=== PATIENT | male | born 1975 | race Caucasian/White ===

== ENCOUNTER 2020-11-22 14:34 | Inpatient (IN) | payer OTHER, SELFPAY ==
[2020-11-22] VITALS (15 sets, daily range): BP systolic 128–179; BP diastolic 95–136; PULSE 83–133; RESP 16–25; TEMP 36.2–36.9; O2SAT 98–99; BMI 33.6; BMI 32.8
--- NOTE | 2020-11-22 15:30 | NURSING ---
NO OLD EKGS
--- NOTE | 2020-11-22 15:39 | EKG12_ITS ---
Test Reason : Blood Pressure : / mmHG Vent. Rate : 121 BPM Atrial Rate : 121 BPM P-R Int : 136 ms QRS Dur : 130 ms QT Int : 358 ms P-R-T Axes : 061 079 -53 degrees QTc Int : 508 ms Sinus tachycardia Non-specific intra-ventricular conduction block Cannot rule out Septal infarct , age undetermined Possible Lateral infarct , age undetermined T wave abnormality, consider inferior ischemia Abnormal ECG Confirmed by ARIEL BEVERLY, JUJU ([id number]), business management manager KITTY FIGUEROA ([id number]) on 11/23/2020 12:48:26 PM Referred By: XAVI/GIUSEPPE Confirmed By:JUJU GEORGE MD
--- NOTE | 2020-11-22 15:39 | RAD_ITS ---
STUDY: X-RAY CHEST REASON FOR EXAM: Male, 45 years old. Chest pain TECHNIQUE: Frontal view COMPARISON: None. FINDINGS: The lungs are clear and expanded. There is no demonstrated pleural abnormality. Cardiomegaly. Normal mediastinum and kevin. Normal visualized pulmonary arteries. Normal visualized aortic arch and descending thoracic aorta. Mild degenerative changes of the thoracic spine. Normal visualized ribs, clavicles, and shoulders. There is no demonstrated abnormality of the visualized soft tissue structures of the upper abdomen. RAD/Chest 1 View (Portable) IMPRESSION: Cardiomegaly. Electronically Signed: Kvng Turcios DO at 16:16 EDT Tel [phone], Service support ,
[2020-11-22 15:49] LABS: Absolute Lymphocyte Count 1.98 X10^3/uL (0.83-4.51); Absolute Neutrophil Count 7.7 X10^3/uL (2.0-7.7); Basophil# 0.09 X10^3/uL; Basophil% 0.8 % (0-1); Eosinophil# 0.03 X10^3/uL; Eosinophils% 0.3 % (0-5); Hematocrit 51.5 % (40-54); Hemoglobin 16.7 g/dL (13.0-16.5); Lymphocyte # 1.98 X10^3/ul (4.0); Lymphocyte % 18.4 % (19-41); Mean Corp Hgb Conc 32.4 g/dL (32-36); Mean Corpuscular Hgb 31.6 pg (27.0-32.0); Mean Corpuscular Volume 97.4 fL (80-94); Mean Platelet Vol. 10.2 fl (6.2-12.0); Monocyte# 0.96 X10^3/uL; Monocyte% 8.9 % (0-10); NRBC Flagged by Analyzer 0 % (0-5); Neutrophil # 7.68 X10^3/uL (2.7-7.7); Neutrophil % 71.2 % (47-70); Platelet Count 314 K/mm3 (150-450); RBC Distribution Width CV 12.9 % (11.6-14.6); RBC Distribution Width SD 46.3 fl (35.1-43.9); Red Blood Count 5.29 M/mm3 (4.6-6.2); White Blood Count 10.8 K/mm3 (4.4-11.0)
[2020-11-22] MEDS: Aspirin 81 MG TAB.CHEW 324 MG PO (15:51)
[2020-11-22] MEDS: 0.9% Normal Saline 1,000 ML 1000 ML IV (15:51)
[2020-11-22 16:11] LABS: Anion Gap 9 (5-15); BUN 16 mg/dL (7-18); BUN/Creat Ratio 10.4 RATIO (10-20); Chloride 102 mmol/L (98-107); Creatinine, Serum 1.54 mg/dL (0.70-1.30); EST Glomerular Filtration Rate 52 mL/min (>60); Est Glom Filt Rate - Afr Amer 62 mL/min (>60); Glucose 104 mg/dL (74-106); Sodium Level 138 mmol/L (136-145); Thyroid Stim Hormone (TSH) 1.81 uIU/mL (0.358-3.74)
[2020-11-22 16:16] LABS: D-Dimer Quantitative (DVT/PE) 1.33 FEU/ug/m (0.27-0.49)
--- NOTE | 2020-11-22 16:17 | CT_ITS ---
STUDY: CTA CHEST REASON FOR EXAM: Male, 45 years old. 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 Post-processing of the angiographic images was performed, with multiplanar reformation and 3D reconstruction. Individualized dose optimization techniques were used for this CT. COMPARISON: None. FINDINGS: Normal enhancement of the main pulmonary artery and right and left pulmonary arteries. Normal enhancement of the bilateral peripheral pulmonary arteries. There is no demonstrated pulmonary embolism. Normal thoracic aorta and visualized great vessels. There is no demonstrated aortic dissection. Normal heart and pericardium. Normal mediastinum. Normal hilar regions. Normal visualized trachea and bronchi. The lungs are well expanded. Normal pulmonary parenchyma. Moderate right pleural effusion. Mild left pleural effusion. Normal chest wall structures. Normal osseous structures. Normal visualized upper abdomen. CT/CTA Chest W/WO Contrast IMPRESSION: No demonstrated pulmonary embolism or arterial dissection. Bilateral pleural effusions, right more than left. Electronically Signed: Kvng Turcios DO at 18:37 EDT Tel [phone], Service support ,
--- NOTE | 2020-11-22 16:19 | ED.VIS.GEN ---
History of Present Illness Chief Complaint: Shortness of Breath Informant: Patient Onset: Weeks Context: Gradual Onset Timing: Continuous Narrative: Is a 45-year-old male denies any past medical history but does admit that he does not go to the doctor presenting with worsening shortness of breath and dyspnea on exertion. He has associated chest tightness. He has had a persistent cough that seems to be worse when he lays down. He thought he might have pneumonia so he went to an urgent care. There he was found to have cardiomegaly and sent to the ER for further evaluation. Patient states over the past few nights he is waking up gasping for breath which is progression of his symptoms. He denies any fever. History of DVT or PE. Does admit decreased activity tolerance. States he has an associated chest tightness but denies any sharp pain. Denies any recent viral syndrome. No other complaints at this time. Past Medical History - Allergies and Home Meds Allergies/Adverse Reactions: Allergies No Known Allergies Allergy (Verified 11/22/20 14:36) Primary Care Physician: [facility] Doctor,Out of [NON-STAFF] - Past Medical History: None Surgical History: noncontributory Lives: Spouse/ Significant Other Smoking Status: Former smoker Review of Systems General: Denies: Chills, Fever, Sweats Eyes: Denies: Visual changes - bilaterally, Diplopia ENT: Denies: Rhinorrhea, Sore throat Cardiovascular: Reports: Chest pain - tightness . Denies: Palpitations Respiratory: Reports: Dyspnea, Cough, Dyspnea on exertion, Orthopnea Gastrointestinal: Denies: Abdominal pain, Nausea, Vomiting, Diarrhea, Melena, Hematochezia Genitourinary: Denies: Dysuria, Hematuria, Frequency Musculoskeletal: Denies: Back pain, Extremity Pain Skin: Denies: Rash, Wounds Neurological: Denies: Headache, Weakness, Numbness Physical Exam Vital Signs/Narrative: Vital Signs Temp Pulse Resp BP Pulse Ox 11/22/20 15:39 99 11/22/20 14:36 97.1 F L 133 H 20 H 178/132 H 98 11/22/20 14:34 97.1 F L 132 H 20 H 178/132 H 98 Inital Vital Signs reviewed: Yes General: Well nourished, Well developed, No Acute Distress Head: Normocephalic, Atraumatic Eyes: Perrl, EOMI ENT: Moist mucous membranes, No rhinorrhea Neck: Supple, Nontender Cardiovascular: Regular rhythm, No murmurs, Tachycardia Respiratory: No distress, Chest nontender, Diminished - bases. Negative for: Decreased Air Movement Abdomen: Soft, Nontender, Nondistended, Normal bowel sounds Back: Nontender, Normal Inspection Extremities: Nontender, No edema Skin: Normal color, No rash Neurological: Alert, Oriented x3, Cranial nerves II-XII grossly intact, Normal Strength, Normal Sensation Psychological: Normal affect, Normal Mood Diagnostic/Tx/Re-eval Chest X-Ray - ED: 1 View, Read by ED Physician, Read by Radiologist, Cardiomegaly Clinical Impression(s) from Imaging Studies Chest X-Ray 11/22/20 15:39 IMPRESSION: Cardiomegaly. Electronically Signed: Kvng Turcios DO at 16:16 EDT Tel [phone], Service support , Laboratory Data 11/22/20 11/22/20 11/22/20 15:40 15:40 15:40 WBC 10.8 RBC 5.29 Hgb 16.7 H Hct 51.5 MCV 97.4 H MCH 31.6 MCHC 32.4 RDW Std Deviation 46.3 H RDW Coeff of Ba 12.9 Plt Count 314 MPV 10.2 Immature Gran % (Auto) 0.400 Neut % (Auto) 71.2 H Lymph % (Auto) 18.4 L [place] % (Auto) 8.9 Eos % (Auto) 0.3 Baso % (Auto) 0.8 Absolute Neuts (auto) 7.7 Absolute Lymphs (auto) 1.98 Nucleated RBC % 0 D-Dimer Quant (PE/DVT) 1.33 H* Sodium 138 Potassium 4.0 Chloride 102 Carbon Dioxide 27.0 Anion Gap 9 BUN 16 Creatinine 1.54 H Estim Creat Clear Calc 59.30 Est GFR (MDRD) Af Amer 62 Est GFR (MDRD) Non-Af 52 L BUN/Creatinine Ratio 10.4 Glucose 104 Calcium 9.0 Troponin I 0.103 H B-Natriuretic Peptide TSH 1.81 11/22/20 15:40 WBC RBC Hgb Hct MCV MCH MCHC RDW Std Deviation RDW Coeff of Ba Plt Count MPV Immature Gran % (Auto) Neut % (Auto) Lymph % (Auto) [place] % (Auto) Eos % (Auto) Baso % (Auto) Absolute Neuts (auto) Absolute Lymphs (auto) Nucleated RBC % D-Dimer Quant (PE/DVT) Sodium Potassium Chloride Carbon Dioxide Anion Gap BUN Creatinine Estim Creat Clear Calc Est GFR (MDRD) Af Amer Est GFR (MDRD) Non-Af BUN/Creatinine Ratio Glucose Calcium Troponin I B-Natriuretic Peptide 2040.7 H TSH - Rhythm Strip Rhythm Strip: Sinus Tach Rate: 121 Ectopy: None - EKG Initial EKG Interpretation: Sinus Tachycardia, LBBB, - - Tachycardia at a rate of 121 interventricular conduction delay consistent with a left bundle branch block Left axis deviation ST depressions in inferior leads as well as V6 Prior: No Prior - Medical Decision Making Patient is evaluated for worsening shortness of breath and dyspnea on exertion. He had an outpatient x-ray which showed cardiomegaly. Reviewed by myself. Patient is hypertensive and tachycardic. He is initially given IV fluids for his tachycardia but this is stopped shortly after and a cardiac work-up is obtained. Patient has an elevated troponin, BNP, and D-dimer. Bedside ultrasound performed by myself does not show any large pericardial effusion but does show cardiomyopathy and what appears to be decreased EF. Case is discussed with cardiology on-call, Dr. Beasley, because of his abnormal EKG. Feels that this is likely left bundle and does not think an emergent cath was required. I am in agreement with this. Patient is given 20 mg of IV labetalol as well as 40 mg of IV Lasix. With the labetalol he has improvement of his cardia and hypertension. Patient is placed on nasal cannula oxygen and does have improvement of his symptoms. Patient be admitted for further evaluation of new onset heart failure. CT reviewed by myself does not show any obvious PE. Final read is still pending. ED Disposition - Plan for ED Patient: Disposition: Acute Care [facility] Diagnosis: New onset of congestive heart failure, Elevated troponin, Elevated serum creatinine, Hypertension Referrals: [facility] Doctor,Out of [NON-STAFF] -
[2020-11-22] MEDS: Labetalol (Prefilled) 20 MG/4 ML IV (16:38)
[2020-11-22] MEDS: Furosemide 40 MG/4 ML Vial IV (17:06)
--- NOTE | 2020-11-22 17:35 | NURSING ---
PCU CHF, NEW ONSET, ELEVATED TROP PAINTSIL
--- NOTE | 2020-11-22 17:45 | PCM.HP.STD ---
<Kimberly Morris - Last Filed: 11/22/20 17:45> Problem List (1) Elevated serum creatinine Status: Acute (2) Elevated troponin Status: Acute (3) New onset of congestive heart failure Status: Acute (4) Hypertension Status: Chronic History of Present Illness Date of Admission: 11/22/20 Chief Complaint: shortness of breath The patient is a 45 year old M who presents today with a 3 to 4-week history of shortness of breath which has gotten increasingly worse over the past 3 to 4 days awakening him from sleep and impacting his ability to perform activities such as pulling the trash cans up the driveway. Patient states that he was being treated for high blood pressure 15 to 20 years ago but quit taking his medications due to potential side effects of liver and kidney damage. Patient states that he has not seen a primary care provider for at least 10+ years because he felt fine. Patient chews tobacco and drinks beer daily. Patient states he is unable to say how many beers a day he drinks because it varies day-to-day. Patient was seen at urgent care prior to arriving in ER where chest x-ray was taken and showed cardiomegaly which is consistent with the chest x-ray obtained upon his arrival. Patient has an elevated D-dimer at 1.33, elevated creatinine 1.54, and elevated BNP 2040.7. Past Medical History Past Medical History (Chronic Problems): Chronic Problems Hypertension (Chronic) Allergies No Known Allergies Allergy (Verified 11/22/20 14:36) Home Medications: Ambulatory Orders Medication Instructions Recorded NK 11/22/20 Surgical History: noncontributory Psychiatric History: No pertinent psych hx Lives: Spouse/ Significant Other Smoking Status: Former smoker Tobacco Use: Chew Alcohol: Heavy Drugs: None - *Family History Maternal History Items: COPD Paternal History Items: Unknown - Patient is not in contact with father Review of Systems Constitutional: Denies: Chills, Fever, Weight Change HEENT: Denies: Head Aches, Sinus Congestion, Sinus Drainage Cardiovascular: Denies: Chest Pain, Palpitations Respiratory: Reports: Shortness of Breath - Awakens him from sleeping, Shortness of breath upon exertion. Denies: Sputum production Gastrointestinal: Denies: Abdominal Pain, Nausea, Vomiting Genitourinary: Denies: Dysuria Musculoskeletal: Denies: Joint Pain, Joint Tenderness Skin: Denies: Rash, Wounds Neurological: Denies: Numbness, Tingling, Focal weakness Psychiatric: Denies: Anxiety, Depression, Homicidal Ideations, Suicidal Ideations Hematologic/ Lymphatic: Denies: Easy Bruising, Easy Bleeding VTE Information - Inpt Only VTE Present on Admission: No VTE Mechan Device Prophylaxis: None VTE Pharm Prophylaxis ordered?: Yes Patient Problems: Active and Suspected Problems New onset of congestive heart failure (Acute) Elevated troponin (Acute) Elevated serum creatinine (Acute) - Physical Exam Vitals/I&O's: Vital Signs Temp Pulse Resp BP Pulse Ox 98 F 89 17 142/119 H 98 11/22/20 17:41 11/22/20 17:41 11/22/20 17:41 11/22/20 17:41 11/22/20 17:41 Oxygen Flow Rate (L/min) 2 Oxygen Delivery Method Room Air Weight: 227 lb 11.8 oz Body Mass Index (BMI) 33.6 Intake and Output for Last 24 Hours 11/20/20 11/21/20 11/22/20 23:59 23:59 23:59 Intake Total 200 / 200 Balance 200 / 200 General: Alert, Oriented x3, Cooperative HEENT: Atraumatic, PERRLA, EOMI, Normocephalic Neck: Supple, No JVD, Negative Carotid Bruits Lungs: Clear to auscultation, Normal air movement, Diminished, Short of Breath Cardiovascular: Regular rate, Regular Rhythm, Normal S1, Normal S2, No murmurs Abdomen: Bowel Sounds Present, Soft, Non Tender Extremities: No edema, Capillary Refill Less than 3 Seconds Skin: No rashes, No breakdown Musculoskeletal: No Tenderness to Palpation of Joints or Extremities Neurological: Cranial nerves II-XII grossly intact Psych/Mental Status: Normal Affect, Appropriate Laboratory Results 11/22/20 15:40: WBC 10.8, RBC 5.29, Hgb 16.7 H, Hct 51.5, MCV 97.4 H, MCH 31.6, MCHC 32.4, RDW Std Deviation 46.3 H, RDW Coeff of Ba 12.9, Plt Count 314, MPV 10.2, Immature Gran % (Auto) 0.400, Neut % (Auto) 71.2 H, Lymph % (Auto) 18.4 L, Swain % (Auto) 8.9, Eos % (Auto) 0.3, Baso % (Auto) 0.8, Absolute Neuts (auto) 7.7, Absolute Lymphs (auto) 1.98, Nucleated RBC % 0 11/22/20 15:40: Sodium 138, Potassium 4.0, Chloride 102, Carbon Dioxide 27.0, Anion Gap 9, BUN 16, Creatinine 1.54 H, Estim Creat Clear Calc 59.30, Est GFR (MDRD) Af Amer 62, Est GFR (MDRD) Non-Af 52 L, BUN/Creatinine Ratio 10.4, Glucose 104, Calcium 9.0, Troponin I 0.103 H, TSH 1.81 11/22/20 15:40: D-Dimer Quant (PE/DVT) 1.33 H* 11/22/20 15:40: B-Natriuretic Peptide 2040.7 H Assessment/Plan All Active Problems New onset of congestive heart failure (Acute) Elevated troponin (Acute) Elevated serum creatinine (Acute) 1. New onset congestive heart failure-initial troponin elevated 0.103. Will trend cardiac enzymes overnight. Patient received Lasix 40 mg IV x1 in ER. We will continue Lasix 40 mg IV twice daily. 2. Hypertension-Per patient this is chronic and untreated. Patient received labetalol 20 mg x 1 in the ER for initial BP 178/132. Patient most recent BP 142/119. We will order as needed hydralazine. 3. Elevated serum creatinine-received IV fluid x1 L in ER. Will obtain CMP in a.m. DVT prophylaxis-SQ heparin This patient was seen by VALERIE David under the supervision of Dr. Vaca. <Bettye Vaca - Last Filed: 11/22/20 23:28> History of Present Illness The patient is a 45 year old M [] Past Medical History Allergies No Known Allergies Allergy (Verified 11/22/20 14:36) - Physical Exam Vitals/I&O's: Vital Signs Temp Pulse Resp BP Pulse Ox 98.4 F 88 18 137/101 H 98 11/22/20 18:19 11/22/20 18:59 11/22/20 19:29 11/22/20 18:19 11/22/20 19:46 Oxygen Flow Rate (L/min) 2 Oxygen Delivery Method Nasal Cannula Weight: 100.698 kg Body Mass Index (BMI) 32.8 Intake and Output for Last 24 Hours 11/20/20 11/21/20 11/22/20 23:59 23:59 23:59 Intake Total 200 / 200 Balance 200 / 200 Laboratory Results 11/22/20 15:40: WBC 10.8, RBC 5.29, Hgb 16.7 H, Hct 51.5, MCV 97.4 H, MCH 31.6, MCHC 32.4, RDW Std Deviation 46.3 H, RDW Coeff of Ba 12.9, Plt Count 314, MPV 10.2, Immature Gran % (Auto) 0.400, Neut % (Auto) 71.2 H, Lymph % (Auto) 18.4 L, Swain % (Auto) 8.9, Eos % (Auto) 0.3, Baso % (Auto) 0.8, Absolute Neuts (auto) 7.7, Absolute Lymphs (auto) 1.98, Nucleated RBC % 0 11/22/20 15:40: Sodium 138, Potassium 4.0, Chloride 102, Carbon Dioxide 27.0, Anion Gap 9, BUN 16, Creatinine 1.54 H, Estim Creat Clear Calc 59.30, Est GFR (MDRD) Af Amer 62, Est GFR (MDRD) Non-Af 52 L, BUN/Creatinine Ratio 10.4, Glucose 104, Calcium 9.0, Troponin I 0.103 H, TSH 1.81 11/22/20 15:40: D-Dimer Quant (PE/DVT) 1.33 H* 11/22/20 15:40: B-Natriuretic Peptide 2040.7 H 11/22/20 19:17: TSH 2.66 11/22/20 19:17: Troponin I 0.093 H 11/22/20 21:31: Troponin I 0.091 H 11/22/20 21:31: Magnesium 2.1 Current Medications Acetaminophen (Acetaminophen 325 Mg Tablet) 650 mg PO Q6H PRN PRN PRN Reason: Pain Score 1-10/Temp > 100.7 F Furosemide (Furosemide 40 Mg/4 Ml Vial) 40 mg IV BID@1000,1800 WILLIAN Heparin Sodium (Porcine) (Heparin Injection (Vial) 5,000 Unit/Ml Vial) 5,000 unit SC Q8 WILLIAN Last Admin: 11/22/20 23:06 Dose: 5,000 unit Documented by: Hydralazine HCl (Hydralazine 20 Mg/Ml Vial) 10 mg IV Q4H PRN PRN PRN Reason: SBP > 160 or DBP > 110 Morphine Sulfate (Morphine 2 Mg/Ml Syringe) 2 mg IV Q3H PRN PRN PRN Reason: Pain Score 6-10 Ondansetron HCl (Ondansetron 4 Mg/2 Ml Vial) 4 mg IV Q8H PRN PRN PRN Reason: NAUSEA/VOMITING Assessment/Plan This patient was seen in conjunction with Kimberly Morris NP. I have independently interviewed and examined the patient and reviewed pertinent historical, laboratory, and other data. Please refer to her note for patient's presentation, findings, and recommendations. 45 y/o male who comes in with a 3 week history of SOB, with exertion and at rest. He denies orthopnea, PND, leg swelling. He denied any weight gain. He was recently seen at urgent care and found to have cardiomegaly. He has h/o hypertension and stopped taking his medications. Vitals were reviewed -elevated BP, improved with Labetalol IV x 1 in ED. Physical Exam: Gen: Comfortable, not pale, not jaundiced, alert oriented x3 CVS:HS I +II, regular, no murmurs RESP: Diminished at lung bases, otherwise clinically clear GI: BS present and normal, nontender, no palpable organs EXT:No edema Labs reviewed: [id number] ASSESSMENT: 1. Acute CHF, unknown cardiomyopathy, unknown EF 2. Indeterminate troponins 3. Elevated Cr, unknown previous 4. Uncontrolled Hypertension Meds reviewed Plan: Admit to PCU Lasix 40mg IV BID CHF protocol - fluid restriction, daily weights 2d-ECHO Trend troponins Repeat labs in am If Cr is stable or improved, can start pt on ACEI/ARB; in the meantime, will give hydralazine prn Inpatient E&M: [id number] Init Hosp L3
--- NOTE | 2020-11-22 18:50 | ECHOCS_ITS ---
Reason For Study: SOB Procedure This was a 2D Doppler, Color Flow transthoracic echocardiogram. The study was technically difficult. Exam performed portable in patient room. Left Ventricle Moderately dilated left ventricle. The estimated ejection fraction is 15 %. Stage 3 diastolic dysfunction. There is severe global hypokinesis of the left ventricle. Right Ventricle Normal RV size. Normal systolic function. Atria The left atrium is moderately enlarged. Normal right atrium. Mitral Valve Normal mitral valve. Tricuspid Valve Normal tricuspid valve. Mild (1+) tricuspid valve insufficiency. Pulmonary artery systolic pressure is 38 mmHg. Aortic Valve Normal aortic valve. Trisinus/trileaflet aortic valve. Pulmonic Valve Normal pulmonic valve. Great Vessels Normal aortic root. The pulmonary artery is normal size. Normal inferior vena cava. Pericardium/Pleural No pericardial effusion. Medication Diluted definity 2ml given slow IV push to enhance endocardial definition. MMode/2D Measurements & Calculations LVIDd: 6.1 cm IVSd: 1.0 cm Ao root diam: 3.4 cm LVIDs: 5.8 cm LVPWd: 1.1 cm RVDd: 4.5 cm FS: 4.6 % LAV(MOD-bp): 95.2 ml LVAd ap4: 53.4 cm2 SV(MOD-sp4): 36.2 ml LAV(MOD-bp) Indexed: 44.5 ml/m2 EDV(MOD-sp4): 239.4 ml LAV(MOD-sp2): 117.2 ml EDV(sp4-el): 249.2 ml LAV(MOD-sp4): 76.2 ml LVAs ap4: 47.4 cm2 ESV(MOD-sp4): 203.2 ml ESV(sp4-el): 212.4 ml EF(MOD-sp4): 15.1 % EF(sp4-el): 14.8 % SV(sp4-el): 36.8 ml LA A4 area: 23.8 cm2 LA dimension(2D): 4.2 cm RA A4 area: 21.7 cm2 Doppler Measurements & Calculations MV E max christ: 94.4 cm/sec Lat Peak E' Christ: 8.7 cm/sec Med Peak E' Christ: 3.4 cm/sec MV A max christ: 44.9 cm/sec E/E' lat: 10.9 E/E' med: 27.5 MV E/A: 2.1 Ao V2 max: 101.7 cm/sec LV V1 max: 79.7 cm/sec PA V2 max: 58.8 cm/sec Ao max P.1 mmHg LV V1 max P.5 mmHg TR max christ: 291.9 cm/sec TR max P.7 mmHg Interpretation Summary The estimated ejection fraction is 15 %. There is severe global hypokinesis of the left ventricle. Moderately dilated left ventricle. Stage 3 diastolic dysfunction. Contrast injection was performed. Ordering Physician: Bettye Vaca Performed By: Rosibel Glover RDCS
[2020-11-22 20:01] LABS: Thyroid Stim Hormone (TSH) 2.66 uIU/mL (0.358-3.74)
--- NOTE | 2020-11-22 21:39 | EKG12_ITS ---
Test Reason : AM EKG Blood Pressure : / mmHG Vent. Rate : 094 BPM Atrial Rate : 094 BPM P-R Int : 146 ms QRS Dur : 136 ms QT Int : 410 ms P-R-T Axes : 059 110 -68 degrees QTc Int : 512 ms Normal sinus rhythm Non-specific intra-ventricular conduction block T wave abnormality, consider inferior ischemia Abnormal ECG When compared with ECG of 22-NOV-2020 21:52, MANUAL COMPARISON REQUIRED, DATA IS UNCONFIRMED Confirmed by ARIEL BEVERLY, JUJU ([id number]), editor & co founder KITTY FIGUEROA ([id number]) on 11/24/2020 9:21:31 AM Referred By: RAHEEM Confirmed By:JUJU GEORGE MD
[2020-11-22 22:42] LABS: Magnesium 2.1 mg/dL (1.6-2.6)
[2020-11-22] MEDS: Heparin Injection (Vial) 5,000 UNIT/ML VIAL 5000 UNIT SC (23:06)
[2020-11-23] VITALS (13 sets, daily range): BP systolic 131–147; BP diastolic 88–108; PULSE 79–107; RESP 14–18; TEMP 36.7–37.2; O2SAT 97–99
[2020-11-23 05:45] LABS: Absolute Lymphocyte Count 1.43 X10^3/uL (0.83-4.51); Absolute Neutrophil Count 9.3 X10^3/uL (2.0-7.7); Basophil# 0.07 X10^3/uL; Basophil% 0.6 % (0-1); Eosinophil# 0.02 X10^3/uL; Eosinophils% 0.2 % (0-5); Hematocrit 51.1 % (40-54); Hemoglobin 16.1 g/dL (13.0-16.5); Lymphocyte # 1.43 X10^3/ul (4.0); Lymphocyte % 11.9 % (19-41); Mean Corp Hgb Conc 31.5 g/dL (32-36); Mean Corpuscular Hgb 31.1 pg (27.0-32.0); Mean Corpuscular Volume 98.8 fL (80-94); Mean Platelet Vol. 10.4 fl (6.2-12.0); Monocyte# 1.13 X10^3/uL; Monocyte% 9.4 % (0-10); NRBC Flagged by Analyzer 0 % (0-5); Neutrophil # 9.28 X10^3/uL (2.7-7.7); Neutrophil % 77.5 % (47-70); Platelet Count 288 K/mm3 (150-450); RBC Distribution Width SD 47.8 fl (35.1-43.9); Red Blood Count 5.17 M/mm3 (4.6-6.2)
--- NOTE | 2020-11-23 05:55 | EKG12_ITS ---
Test Reason : CHF Blood Pressure : / mmHG Vent. Rate : 093 BPM Atrial Rate : 093 BPM P-R Int : 148 ms QRS Dur : 136 ms QT Int : 424 ms P-R-T Axes : 057 104 -89 degrees QTc Int : 527 ms Normal sinus rhythm Non-specific intra-ventricular conduction block T wave abnormality, consider inferior ischemia Abnormal ECG When compared with ECG of 22-NOV-2020 15:27, MANUAL COMPARISON REQUIRED, DATA IS UNCONFIRMED Confirmed by ARIEL BEVERLY, JUJU ([id number]), design editor KITTY FIGUEROA ([id number]) on 11/24/2020 9:21:43 AM Referred By: RAHEEM Confirmed By:JUJU GEORGE MD
[2020-11-23 06:11] LABS: AST(SGOT) 458 U/L (15-37); Alanine Aminotransfer ALT/SGPT 248 U/L (16-61); Albumin, Serum 3.2 g/dL (3.2-5.0); Alkaline Phosphatase 51 U/L (45-117); Anion Gap 8 (5-15); BUN 16 mg/dL (7-18); BUN/Creat Ratio 10.7 RATIO (10-20); Calcium,Total 8.6 mg/dL (8.5-10.1); Chloride 103 mmol/L (98-107); EST Glomerular Filtration Rate 53 mL/min (>60); Est Glom Filt Rate - Afr Amer 64 mL/min (>60); Estimated Creatinine Clearance 60.88 ml/min; Globulin 3.1 g/dL (2.2-4.2); Glucose 94 mg/dL (74-106); Potassium 5.1 mmol/L (3.5-5.1); Protein, Total 6.3 g/dL (6.4-8.2); Sodium Level 138 mmol/L (136-145)
[2020-11-23] MEDS: Heparin Injection (Vial) 5,000 UNIT/ML VIAL 5000 UNIT SC ×3 (06:54→22:38)
--- NOTE | 2020-11-23 09:05 | CCTA.WCONT ---
CCTA w/Cont Coronary Arteries LEFT MAIN CORONARY ARTERY: [] LEFT ANTERIOR DESCENDING CORONARY ARTERY: [] LEFT CIRCUMFLEX CORONARY ARTERY: [] RIGHT CORONARY ARTERY: [] THORACIC AORTA: [] PULMONARY ARTERY: [] LEFT ATRIUM/APPENDAGE: [] MITRAL VALVE: [] AORTIC VALVE: [] LEFT VENTRICLE: [] CORONARY CALCIUM SCORE: []
--- NOTE | 2020-11-23 09:10 | PCM.CONS.C ---
Reason for Consult Date of Consultation: 11/23/20 History of Present Illness: The patient is a 45 year old M [] Past Medical History Allergies/Adverse Reactions: Allergies No Known Allergies Allergy (Verified 11/22/20 14:36) Home Medications: Ambulatory Orders Medication Instructions Recorded NK 11/22/20 Past Medical History (Chronic Problems): Chronic Problems Hypertension (Chronic) Surgical History: noncontributory Psychiatric History: No pertinent psych hx - *Family History Maternal History Items: COPD Paternal History Items: Unknown - Patient is not in contact with father Lives: Spouse/ Significant Other Smoking Status: Former smoker Tobacco Use: Chew Alcohol: Heavy Drugs: None Objective: Vital Signs Temp Pulse Resp BP Pulse Ox 98.2 F 98 18 144/91 H 99 11/23/20 06:00 11/23/20 06:54 11/23/20 06:00 11/23/20 06:00 11/23/20 06:00 Oxygen Flow Rate (L/min) 2 Oxygen Delivery Method Nasal Cannula Weight: 217 lb 13.067 oz Body Mass Index (BMI) 32.8 Intake and Output for Last 24 Hours 11/21/20 11/22/20 11/23/20 23:59 23:59 23:59 Intake Total 680 / 680 200 / 200 Output Total 630 / 630 Balance 50 / 50 200 / 200 General: Alert HEENT: PERRL, EOMI, Sclera Non Icteric Neck: Good ROM, No Lymph Node Enlargement Lungs: Clear to auscultation 11/22/20 15:40: WBC 10.8, RBC 5.29, Hgb 16.7 H, Hct 51.5, MCV 97.4 H, MCH 31.6, MCHC 32.4, Plt Count 314, MPV 10.2, Immature Gran % (Auto) 0.400, Neut % (Auto) 71.2 H, Lymph % (Auto) 18.4 L, [place] % (Auto) 8.9, Eos % (Auto) 0.3, Baso % (Auto) 0.8, Absolute Neuts (auto) 7.7, Nucleated RBC % 0 11/22/20 15:40: Sodium 138, Potassium 4.0, Chloride 102, Carbon Dioxide 27.0, Anion Gap 9, BUN 16, Creatinine 1.54 H, Est GFR (MDRD) Af Amer 62, Est GFR (MDRD) Non-Af 52 L, BUN/Creatinine Ratio 10.4, Glucose 104, Calcium 9.0, Troponin I 0.103 H 11/22/20 15:40: D-Dimer Quant (PE/DVT) 1.33 H* 11/22/20 15:40: B-Natriuretic Peptide 2040.7 H 11/22/20 19:17: Troponin I 0.093 H 11/22/20 21:31: Troponin I 0.091 H 11/22/20 21:31: Magnesium 2.1 11/23/20 05:24: WBC 12.0 H, RBC 5.17, Hgb 16.1, Hct 51.1, MCV 98.8 H, MCH 31.1, MCHC 31.5 L, Plt Count 288, MPV 10.4, Immature Gran % (Auto) 0.400, Neut % (Auto) 77.5 H, Lymph % (Auto) 11.9 L, [place] % (Auto) 9.4, Eos % (Auto) 0.2, Baso % (Auto) 0.6, Absolute Neuts (auto) 9.3 H, Nucleated RBC % 0 11/23/20 05:24: Sodium 138, Potassium 5.1, Chloride 103, Carbon Dioxide 27.0, Anion Gap 8, BUN 16, Creatinine 1.50 H, Est GFR (MDRD) Af Amer 64, Est GFR (MDRD) Non-Af 53 L, BUN/Creatinine Ratio 10.7, Glucose 94, Calcium 8.6, Total Bilirubin 0.80 Rhythm: Normal sinus rhythm EKG: ST-T change , in the inferior leads Assessment/Plan 45-year-old patient, admitted through the ER with symptoms of shortness of breath which has been for the last 3 to 4 weeks. Recently through 4 days ago he noted worsening of his symptoms with progressive shortness of breath And difficulty of even taking the trash out his house. He does not have any symptoms of chest pain. Patient had longstanding history of hypertension currently is not taking any medication and he has not been seen and followed by primary care physician. 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 Assessment and plan;. 1. On review of the record he had a clear evidence of congestive heart failure with cardiomegaly and CHF on the chest x-ray, elevated BNP, also had a very mild elevation of high sensitive troponin I 0.0103, which is likely secondary to his renal insufficiency and to CHF patient has no active symptoms of chest pain this is type II IN 2. Significant elevation of BNP 3. The electrocardiogram showed evidence of, ST T changes in the inferior lead. On physical exam he had a mild basal rales and also he had a +1 lower extremity edema 4. I reviewed his current medication in detail with the nursing staff reduce the dose of Lasix to 40 once a day and also added hydralazine 5. Patient will be evaluated further today by echocardiogram to assess his LV function and also I recommended to follow-up with the cardiology team for continuation of cardiac care plan.
[2020-11-23] MEDS: 0.9% Saline Lock 10 ML Syringe IV (10:00)
[2020-11-23] MEDS: Furosemide 40 MG/4 ML Vial IV (10:00)
[2020-11-23] MEDS: hydrALAZINE 50 MG Tablet PO ×2 (10:06→20:40)
--- NOTE | 2020-11-23 10:57 | CASEMGMT ---
RN CM Assessment Note Introduced role of CM to patient in room. Patient is awake, alert and able to participate in assessment. Demographics verified. Patient works, is independent, and does not have any discharge concerns at this time. The patient chews tobacco and drinks beers daily. Retort Operator updated. Pt is calm and no s/s of withdrawal noted at the time of assessment. -Patient states nursing has been teaching re: medications and importance of compliance. Diagnosis: Acute CHF, HTN PMH: HTN, PCP: none. List for PCP's and specialists given to the patient by nursing. Patient states he will contact offices on dc for follow up. Insurance: MMO Preferred [facility]acy: [facility] Pres[facility] Benefit: none LNOK: , Nikki Finnegan Living Arrangements: Lives independently with his . The patient states he does not have any care needs @ home. Tranportation: drives DME: none HHC: none SNF: none Patient DC Goals: Home DC Plan: Home on discharge. The patient will contact physician offices for new patient appointments and follow up. CM available for discharge planning coordination. Contact CM for any concerns/needs that may arise. Shanna SANCHEZN RN ACM
--- NOTE | 2020-11-23 13:09 | PN_ITS ---
<Mat Spicer - Last Filed: 11/23/20 13:09> Patient Problems: Active and Suspected Problems New onset of congestive heart failure (Acute) Elevated troponin (Acute) Elevated serum creatinine (Acute) Reason for Visit: Progressive shortness of breath. Subjective: Patient is a 45-year-old male comfortably resting in the chair watching TV. Patient currently reports no shortness of breath, chest pain or palpitations. Objective: Clinical Impression(s) from Imaging Studies Chest X-Ray 11/22/20 15:39 IMPRESSION: Cardiomegaly. Electronically Signed: Kvng Turcios DO at 16:16 EDT Tel [phone], Service support , Chest CTA 11/22/20 16:17 IMPRESSION: No demonstrated pulmonary embolism or arterial dissection. Bilateral pleural effusions, right more than left. Electronically Signed: Kvng Turcios DO at 18:37 EDT Tel [phone], Service support , Vitals/I&O's: Vital Signs Temp Pulse Resp BP Pulse Ox 99 F 107 H 15 147/102 H 98 11/23/20 09:47 11/23/20 12:37 11/23/20 09:47 11/23/20 10:06 11/23/20 09:47 Oxygen Flow Rate (L/min) 2 Oxygen Delivery Method Room Air Weight: 217 lb 13.067 oz Body Mass Index (BMI) 32.8 Intake and Output for Last 24 Hours 11/21/20 11/22/20 11/23/20 23:59 23:59 23:59 Intake Total 680 / 680 550 / 550 Output Total 630 / 630 1325 / 1325 Balance 50 / 50 -775 / -775 General: Alert, Oriented x3, Cooperative HEENT: Atraumatic, PERRLA, EOMI, Normocephalic Neck: Supple, No JVD, Negative Carotid Bruits Lungs: Clear to auscultation, Normal air movement Cardiovascular: Regular rate Abdomen: Bowel Sounds Present, Soft, Non Tender Extremities: No edema, Capillary Refill Less than 3 Seconds Skin: No rashes, No breakdown Musculoskeletal: No Tenderness to Palpation of Joints or Extremities Neurological: Cranial nerves II-XII grossly intact Psych/Mental Status: Normal Affect, Appropriate Laboratory Results 11/22/20 15:40: WBC 10.8, RBC 5.29, Hgb 16.7 H, Hct 51.5, MCV 97.4 H, MCH 31.6, MCHC 32.4, RDW Std Deviation 46.3 H, RDW Coeff of Ba 12.9, Plt Count 314, MPV 10.2, Immature Gran % (Auto) 0.400, Neut % (Auto) 71.2 H, Lymph % (Auto) 18.4 L, Summers % (Auto) 8.9, Eos % (Auto) 0.3, Baso % (Auto) 0.8, Absolute Neuts (auto) 7.7, Absolute Lymphs (auto) 1.98, Nucleated RBC % 0 11/22/20 15:40: Sodium 138, Potassium 4.0, Chloride 102, Carbon Dioxide 27.0, Anion Gap 9, BUN 16, Creatinine 1.54 H, Estim Creat Clear Calc 59.30, Est GFR (MDRD) Af Amer 62, Est GFR (MDRD) Non-Af 52 L, BUN/Creatinine Ratio 10.4, Glucose 104, Calcium 9.0, Troponin I 0.103 H, TSH 1.81 11/22/20 15:40: D-Dimer Quant (PE/DVT) 1.33 H* 11/22/20 15:40: B-Natriuretic Peptide 2040.7 H 11/22/20 19:17: TSH 2.66 11/22/20 19:17: Troponin I 0.093 H 11/22/20 21:31: Troponin I 0.091 H 11/22/20 21:31: Magnesium 2.1 11/23/20 05:24: WBC 12.0 H, RBC 5.17, Hgb 16.1, Hct 51.1, MCV 98.8 H, MCH 31.1, MCHC 31.5 L, RDW Std Deviation 47.8 H, RDW Coeff of Ba 13.0, Plt Count 288, MPV 10.4, Immature Gran % (Auto) 0.400, Neut % (Auto) 77.5 H, Lymph % (Auto) 11.9 L, Summers % (Auto) 9.4, Eos % (Auto) 0.2, Baso % (Auto) 0.6, Absolute Neuts (auto) 9.3 H, Absolute Lymphs (auto) 1.43, Nucleated RBC % 0 11/23/20 05:24: Sodium 138, Potassium 5.1, Chloride 103, Carbon Dioxide 27.0, Anion Gap 8, BUN 16, Creatinine 1.50 H, Estim Creat Clear Calc 60.88, Est GFR (MDRD) Af Amer 64, Est GFR (MDRD) Non-Af 53 L, BUN/Creatinine Ratio 10.7, Glucose 94, Calcium 8.6, Total Bilirubin 0.80, AST 458 H, ALT 248 H, Alkaline Phosphatase 51, Total Protein 6.3 L, Albumin 3.2, Globulin 3.1, Albumin/Globulin Ratio 1.0 Current Medications Acetaminophen (Acetaminophen 325 Mg Tablet) 650 mg PO Q6H PRN PRN PRN Reason: Pain Score 1-10/Temp > 100.7 F Furosemide (Furosemide 40 Mg/4 Ml Vial) 40 mg IV DAILY [facility] Last Admin: 11/23/20 10:00 Dose: 40 mg Documented by: Heparin Sodium (Porcine) (Heparin Injection (Vial) 5,000 Unit/Ml Vial) 5,000 unit SC Q8 [facility] Last Admin: 11/23/20 06:54 Dose: 5,000 unit Documented by: Hydralazine HCl (Hydralazine 20 Mg/Ml Vial) 10 mg IV Q4H PRN PRN PRN Reason: SBP > 160 or DBP > 110 Hydralazine HCl (Hydralazine 50 Mg Tablet) 50 mg PO BID [facility] Last Admin: 11/23/20 10:06 Dose: 50 mg Documented by: Morphine Sulfate (Morphine 2 Mg/Ml Syringe) 2 mg IV Q3H PRN PRN PRN Reason: Pain Score 6-10 Ondansetron HCl (Ondansetron 4 Mg/2 Ml Vial) 4 mg IV Q8H PRN PRN PRN Reason: NAUSEA/VOMITING STROKE Vital Signs/Narrative: Vital Signs Temp Pulse Resp BP Pulse Ox 11/23/20 12:37 107 H 11/23/20 10:06 97 147/102 H 11/23/20 09:47 99 F 97 15 147/102 H 98 Medical Necessity - Tobacco Use Smoking Status: Former smoker Tobacco Use: Chew Assessment/Plan All Active Problems New onset of congestive heart failure (Acute) Elevated troponin (Acute) Elevated serum creatinine (Acute) Patient is a 45-year-old male who reported to the ED on 11/21/2020 for progressive shortness of breath. Chest x-ray demonstrated cardiomegaly. EKG demonstrated several abnormalities to include sinus tachycardia, T wave abnormalities, and possible septal and lateral infarcts. Troponins elevated throughout cycle. BNP 2040.7 pg/mL. Currently waiting echocardiogram assessment from cardiovascular medicine. Remain admitted overnight 1) new onset CHF Assessment - BNP 2040.7 - Elevated troponins throughout cycle - Cardiomegaly on chest x-ray - EKG abnormalities - Telemetry sinus tachycardia Plan - Reduce Lasix to 40 mg p.o. daily per cardiology - Add hydralazine per cardiology - Waiting on echocardiogram analysis from cardiovascular medicine 2) Hypertension Assessment - BP 147/102 Plan - Reduce Lasix to 40 mg p.o. daily per cardiology - Add hydralazine per cardiology 3) Elevated creatinine Assessment - 1.50 as of 11/23/2020 - Trending down from yesterday Plan - Continue to monitor - Continue to hold CAROLINA I/ARB DVT Prophylaxis - SC Heparin Patient seen by Mat Spicer PA-C, under the supervision of Dr. Muro <Shar Muro - Last Filed: 11/23/20 15:57> Subjective: Feeling better. Breathing well. Patient states that he is very motivated to change his life, diet cut out alcohol and follow-up to physicians moving forward. Vitals/I&O's: Vital Signs Temp Pulse Resp BP Pulse Ox 37.0 C 93 14 131/89 H 97 11/23/20 14:13 11/23/20 14:13 11/23/20 14:13 11/23/20 14:13 11/23/20 14:13 Oxygen Flow Rate (L/min) 2 Oxygen Delivery Method Room Air Weight: 98.8 kg Body Mass Index (BMI) 32.8 Intake and Output for Last 24 Hours 11/21/20 11/22/20 11/23/20 23:59 23:59 23:59 Intake Total 680 / 680 550 / 550 Output Total 630 / 630 1325 / 1325 Balance 50 / 50 -775 / -775 General: Alert, Cooperative HEENT: Atraumatic, Normocephalic Neck: No Nodes, Thyroid Normal Size and Texture Lungs: Normal air movement, No wheeze, - - bibasilar crackles Cardiovascular: Regular rate, Regular Rhythm, Normal S1, Normal S2 Abdomen: Bowel Sounds Present, Soft, Non Tender, Non-Distended Extremities: No edema, No Calf Tenderness Skin: No rashes, No breakdown Laboratory Results 11/22/20 15:40: Sodium 138, Potassium 4.0, Chloride 102, Carbon Dioxide 27.0, Anion Gap 9, BUN 16, Creatinine 1.54 H, Estim Creat Clear Calc 59.30, Est GFR (MDRD) Af Amer 62, Est GFR (MDRD) Non-Af 52 L, BUN/Creatinine Ratio 10.4, Glucose 104, Calcium 9.0, Troponin I 0.103 H, TSH 1.81 11/22/20 15:40: D-Dimer Quant (PE/DVT) 1.33 H* 11/22/20 15:40: B-Natriuretic Peptide 2040.7 H 11/22/20 19:17: TSH 2.66 11/22/20 19:17: Troponin I 0.093 H 11/22/20 21:31: Troponin I 0.091 H 11/22/20 21:31: Magnesium 2.1 11/23/20 05:24: WBC 12.0 H, RBC 5.17, Hgb 16.1, Hct 51.1, MCV 98.8 H, MCH 31.1, MCHC 31.5 L, RDW Std Deviation 47.8 H, RDW Coeff of Ba 13.0, Plt Count 288, MPV 10.4, Immature Gran % (Auto) 0.400, Neut % (Auto) 77.5 H, Lymph % (Auto) 11.9 L, [place]mers % (Auto) 9.4, Eos % (Auto) 0.2, Baso % (Auto) 0.6, Absolute Neuts (auto) 9.3 H, Absolute Lymphs (auto) 1.43, Nucleated RBC % 0 11/23/20 05:24: Sodium 138, Potassium 5.1, Chloride 103, Carbon Dioxide 27.0, Anion Gap 8, BUN 16, Creatinine 1.50 H, Estim Creat Clear Calc 60.88, Est GFR (MDRD) Af Amer 64, Est GFR (MDRD) Non-Af 53 L, BUN/Creatinine Ratio 10.7, Glucose 94, Calcium 8.6, Total Bilirubin 0.80, AST 458 H, ALT 248 H, Alkaline Phosphatase 51, Total Protein 6.3 L, Albumin 3.2, Globulin 3.1, Albumin/Globulin Ratio 1.0 Current Medications Acetaminophen (Acetaminophen 325 Mg Tablet) 650 mg PO Q6H PRN PRN PRN Reason: Pain Score 1-10/Temp > 100.7 F Furosemide (Furosemide 40 Mg/4 Ml Vial) 40 mg IV DAILY [facility] Last Admin: 11/23/20 10:00 Dose: 40 mg Documented by: Heparin Sodium (Porcine) (Heparin Injection (Vial) 5,000 Unit/Ml Vial) 5,000 unit SC Q8 [facility] Last Admin: 11/23/20 14:19 Dose: 5,000 unit Documented by: Hydralazine HCl (Hydralazine 20 Mg/Ml Vial) 10 mg IV Q4H PRN PRN PRN Reason: SBP > 160 or DBP > 110 Hydralazine HCl (Hydralazine 50 Mg Tablet) 50 mg PO BID [facility] Last Admin: 11/23/20 10:06 Dose: 50 mg Documented by: Morphine Sulfate (Morphine 2 Mg/Ml Syringe) 2 mg IV Q3H PRN PRN PRN Reason: Pain Score 6-10 Ondansetron HCl (Ondansetron 4 Mg/2 Ml Vial) 4 mg IV Q8H PRN PRN PRN Reason: NAUSEA/VOMITING STROKE Vital Signs/Narrative: Vital Signs Temp Pulse Resp BP Pulse Ox 11/23/20 14:13 37.0 C 93 14 131/89 H 97 11/23/20 12:37 107 H Assessment/Plan Patient seen and examined independently. Data reviewed. I agree with the above note by the physician certified ophthalmic assistant. 1. Acute heart failure with a reduced ejection fraction EF 15% Overall improving Plan: * Continue with IV diuresis with furosemide * Started on hydralazine. Holding off on CAROLINA inhibitor/angiotensin receptor blockers given the chronic kidney disease at this time. * Cardiology following 2. Elevated troponin Likely due to demand with the patient heart failure Has been trending down 3. CKD 3A Monitor closely while patient is on furosemide. No need for renal placement therapy at this time. 4. VTE prophylaxis with subcu heparin. Inpatient E&M: 9[address] [facility] L2
[2020-11-23 18:05] LABS: Anion Gap 8 (5-15); BUN 24 mg/dL (7-18); BUN/Creat Ratio 15.6 RATIO (10-20); Calcium,Total 8.4 mg/dL (8.5-10.1); Chloride 103 mmol/L (98-107); Creatinine, Serum 1.54 mg/dL (0.70-1.30); EST Glomerular Filtration Rate 52 mL/min (>60); Est Glom Filt Rate - Afr Amer 62 mL/min (>60); Glucose 97 mg/dL (74-106); Magnesium 2.1 mg/dL (1.6-2.6); Potassium 4.1 mmol/L (3.5-5.1); Sodium Level 138 mmol/L (136-145)
[2020-11-23] MEDS: Carvedilol 3.125 MG TABLET PO (20:47)
[2020-11-24] VITALS (18 sets, daily range): BP systolic 105–139; BP diastolic 73–107; PULSE 71–97; RESP 14–16; TEMP 36.6–37.1; O2SAT 95–99
[2020-11-24] MEDS: Heparin Injection (Vial) 5,000 UNIT/ML VIAL 5000 UNIT SC ×2 (05:51→22:30)
[2020-11-24 06:00] LABS: ALB/GLOB Ratio 0.9 RATIO (0.9-2.4); AST(SGOT) 317 U/L (15-37); Alanine Aminotransfer ALT/SGPT 263 U/L (16-61); Albumin, Serum 2.7 g/dL (3.2-5.0); Alkaline Phosphatase 46 U/L (45-117); Anion Gap 8 (5-15); BUN 21 mg/dL (7-18); BUN/Creat Ratio 17.1 RATIO (10-20); Calcium,Total 8.5 mg/dL (8.5-10.1); Chloride 103 mmol/L (98-107); Creatinine, Serum 1.23 mg/dL (0.70-1.30); EST Glomerular Filtration Rate 67 mL/min (>60); Est Glom Filt Rate - Afr Amer 81 mL/min (>60); Estimated Creatinine Clearance 74.24 ml/min; Globulin 3.1 g/dL (2.2-4.2); Glucose 87 mg/dL (74-106); Potassium 3.8 mmol/L (3.5-5.1); Protein, Total 5.8 g/dL (6.4-8.2); Sodium Level 140 mmol/L (136-145)
[2020-11-24] MEDS: hydrALAZINE 50 MG Tablet PO ×2 (08:25→22:29)
[2020-11-24] MEDS: Carvedilol 3.125 MG TABLET PO ×2 (08:26→09:55)
--- NOTE | 2020-11-24 08:43 | EKG12_ITS ---
Test Reason : Blood Pressure : / mmHG Vent. Rate : 098 BPM Atrial Rate : 098 BPM P-R Int : 148 ms QRS Dur : 138 ms QT Int : 402 ms P-R-T Axes : 063 101 -76 degrees QTc Int : 513 ms Normal sinus rhythm Non-specific intra-ventricular conduction block T wave abnormality, consider inferior ischemia Abnormal ECG When compared with ECG of 23-NOV-2020 04:14, MANUAL COMPARISON REQUIRED, DATA IS UNCONFIRMED Confirmed by ARIEL BEVERLY, JUJU ([id number]), manager editorial KITTY FIGUEROA ([id number]) on 11/27/2020 10:58:30 AM Referred By: CANDI Confirmed By:JUJU GEORGE MD
--- NOTE | 2020-11-24 09:15 | CASEMGMT ---
Per Dr. Muro, pt may need a Lifevest at discharge. Call to [place] [facility] and to inquire about whether Lifevest has been initiated by office and per Marcie, she will inquire and call this RN LUCIA back. Usually, ALUMINUM SIDING APPLICATOR in cardiology office works on this but she is not in the office today per Marcie. Kayden, PCU charge, updated, voices understanding. [facility] HE CM
[2020-11-24] MEDS: Lisinopril 5 MG Tablet PO (09:55)
--- NOTE | 2020-11-24 09:55 | CASEMGMT ---
According to the O website, the following are in-network tertiary facilities: [facility], [place], [facility], [place], [facility], [facility], [facility], [facility], [facility], and . [place]
[2020-11-24] MEDS: Furosemide 40 MG/4 ML Vial IV (10:01)
[2020-11-24] MEDS: 0.9% Normal Saline 1,000 ML 15 ML IV (10:37)
--- NOTE | 2020-11-24 11:49 | CASEMGMT ---
Lifevest rep here to speak with pt. Rep is aware that pt is getting a cath and this RN CM will notify him if pt would happen to be transferred s/p cath. Shanique CUTLER CM
--- NOTE | 2020-11-24 13:12 | CL.D_ITS ---
Patient Name: MICHAEL HENRY Study Date: 11/24/2020 Performing: Niels Beasley MD Ht: 68.89 inches 175 cm : 1975 Wt: 216.05 lbs 98 kg Age: 45 Gender: male BSA: 2.13 PROCEDURE(S) PERFORMED EF53-YEA/COR/LV CLINICAL PROFILE AND INDICATIONS Indications: Cardiomyopathy Heart Failure: NYHA Class: 3, Newly Diagnosed: Yes, Heart Failure Type: Systolic Stress/Imaging Stress/Image Study Performed: No CAD Presentations: Symptom unlikely to be ischemic. CONCLUSIONS Normal coronary arteries Cardiomyopathy: Dilated RECOMMENDATIONS Medical therapy We will maximize medical therapy with CAR[place]INA inhibitor's, beta-blockers, diuretics. Amiodarone short-te rm. Patient would also go home on a LifeVest and be followed up in the office. DESCRIPTION OF PROCEDURE The patient arrived to the procedure lab. The risks and benefits of the procedure as well as a full d escription of our services here and current unavailability of surgical backup were fully explained to the patient and/or their significant other prior to the catheterization. The Timeout was completed, verifying the correct patient and procedure. The patient's procedural site was prepped and draped in the usual fashion. Local anesthetic was given subcutaneously to right radial region with Lidocaine 2% . Using a modified Seldinger technique, arterial access was obtained via the right radial artery, a 6 Fr sheath was inserted. Right Coronary Artery selective angiography was then performed in multiple v iews using a 5 Fr. 4.0 [place] catheter. Left Coronary Artery selective angiography was performed in mu ltiple views using a 5 Fr. 4.0 [place] catheter. Left Ventriculography was performed in PANDA projection using a 5 Fr. Pigtail catheter. LV to AO pullback pressures were then recorded.The arterial sheath was pulled and a TR Band was applied for hemostasis CORONARY ANGIOGRAPHY DOMINANCE: Right Dominant LEFT HEART ASSESSMENT Left Ventricular Ejection Fraction: by LV Gram 15 % Global Hypokinesis - Severe Depressed Left Ventricular systolic function LEFT MAIN: Angiographically normal LEFT ANTERIOR DESCENDING ARTERY: Angiographically normal CIRCUMFLEX ARTERY: Angiographically normal RAMUS: Angiographically normal RIGHT CORONARY ARTERY: Angiographically normal COMPLICATIONS No Complications PROCEDURE MEDICATIONS Versed 1 mg IV Fentanyl 50 mcg IV Versed 1 mg IV Oxygen: 2 L/min via nasal cannula Baby Aspirin (81mg) 1 Tabs PO @ 11/24/2020 12:44:24 Heparin given IA 11/24/2020 12:54:20 Verapamil 2.5mg, Ntg 100mcgs, 2000 units of Heparin given IA 11/24/2020 12:54:20 SUMMARY OF HEMODYNAMIC DATA Time AIR REST ECG 12:27:19 AO 100/75 (87) SA 12:55:44 LV 100/13, 26 13:01:00 LV 103/10, 23 13:01:07 LV 94/9, 16 13:02:43 LV 94/11, 19 13:02:49 LVp 94/10, 18 13:02:56 AOp 98/69 (83) 13:03:01 Signed By Niels Beasley MD On 11/24/2020 13:11:45 Niels Beasley MD
--- NOTE | 2020-11-24 13:13 | PN.CARD_ITS ---
Subjectve: Patient seen and evaluated. Appears to be doing well. Objective: Vital Signs Temp Pulse Resp BP Pulse Ox 98 F 96 14 138/104 H 96 11/24/20 08:21 11/24/20 08:25 11/24/20 08:21 11/24/20 08:25 11/24/20 08:21 Oxygen Flow Rate (L/min) 2 Oxygen Delivery Method Room Air Weight: 214 lb 15.211 oz Body Mass Index (BMI) 32.8 Intake and Output for Last 24 Hours 11/22/20 11/23/20 11/24/20 23:59 23:59 23:59 Intake Total 680 / 680 1000 / 1200 643 / 643 Output Total 630 / 630 2125 / 2125 2600 / 2600 Balance 50 / 50 -1125 / -925 -1956 / General: Awake, Alert, Oriented x 3 HEENT: PERRL, EOMI, Sclera Non Icteric Neck: Supple, Good ROM, No Lymph Node Enlargement Lungs: Clear to auscultation Cardiovascular: Regular Rhythm, Normal S1, Normal S2, No Murmurs, No Rubs, No Gallops Vascular: No Carotid Bruits, Normal Femoral Pulses, Normal Radial Pulses, Normal Dorsalis Pedal Pulse, Normal Posterior Tibial Pulses Abdomen: Bowel Sounds Present, Soft, Non Tender, No HSM, No Organomegaly Extremities: No Cyanosis, No Clubbing, No edema Musculoskeletal: No Erythema Skin: No Rashes Neurological: No Focal Motor or Sensory Deficit Psych/Mental Status: Appropriate 11/23/20 17:35: Sodium 138, Potassium 4.1, Chloride 103, Carbon Dioxide 27.0, Anion Gap 8, BUN 24 H, Creatinine 1.54 H, Est GFR (MDRD) Af Amer 62, Est GFR (MDRD) Non-Af 52 L, BUN/Creatinine Ratio 15.6, Glucose 97, Calcium 8.4 L, Magnesium 2.1 11/24/20 05:00: Sodium 140, Potassium 3.8, Chloride 103, Carbon Dioxide 29.0, Anion Gap 8, BUN 21 H, Creatinine 1.23, Est GFR (MDRD) Af Amer 81, Est GFR (MDRD) Non-Af 67, BUN/Creatinine Ratio 17.1, Glucose 87, Calcium 8.5, Total Bilirubin 0.80 11/24/20 05:00: B-Natriuretic Peptide 1649.0 H Rhythm: EKG: ECHO: Stress Test: Cardiac Cath: PCI: CT Surgery: Holter monitor: EPS: PPM: CXR: Chest CT Scan: Medical Necessity - Tobacco Use Smoking Status: Former smoker Tobacco Use: Chew Assessment/Plan 1. Severe nonischemic cardiomyopathy * Patient has severe nonischemic cardiomyopathy with an estimated ejection fra ction of 15%. Patient underwent cardiac catheterization today which demonstrated essentially normal coronary arteries. The left ventricular ejection fraction was confirmed at approximately 15% by cardiac catheterization as well as by echocardiographic evaluation. * In view of the fact that the patient has only a history of hypertension it is likely that the above is secondary to the hypertensive heart disease. * Would recommend continuing the beta-nelli with carvedilol 6.25 mg twice a day and titrating upwards as appropriate * Would add [place] inhibitor lisinopril and titrate upwards as an appropriate and will eventually switch to Entresto * Would continue Lasix 40 mg daily on discharge * Would also consider the patient for an implantable defibrillator if ejection fraction is not improved in 90 days. * In the meantime with his nonsustained ventricular tachyarrhythmia would recommend the placement of a LifeVest. The above has been discussed with the patient who is understandable and agrees to proceed. * Appropriate education on the above has been undertaken. * 2. Congestive heart failure-with reduced ejection fraction * Patient is noted to have congestive heart failure [place] Heart Association class III new onset ACC stage C. * Would institute and continue guideline directed medical therapy including beta-nelli, CAR[place] inhibitors or Entresto, diuretics, spironolactone at a later date. * 3. Nonsustained ventricular tachycardia * Patient exhibited nonsustained ventricular tachycardia which was relatively asymptomatic. * Will load patient with intravenous amiodarone and also oral amiodarone short- term. The above can be adjusted as appropriate. After 90 days we will consider repeat echocardiogram to assess whether an implantable defibrillator or additional medical therapy will be considered. * The patient has a left bundle branch block pattern and if his ejection fraction does not improve may be a candidate for a REPRODUCTION ORDER PROCESSOR-D device * 4. Hypertension * Patient has uncontrolled hypertension. * Would maximize medical therapy with CAROLINA inhibitor and beta-nelli as well as hydralazine at the present time. * Will closely follow renal function. * * Thank you for allowing me to participate in the care of your patient. Please don't hesitate to call if any issues arise.
[2020-11-24] MEDS: Amiodarone 200 MG Tablet PO ×2 (14:48→22:29)
--- NOTE | 2020-11-24 14:48 | PN_ITS ---
<Mat Spicer - Last Filed: 11/24/20 14:48> Patient Problems: Active and Suspected Problems (Last Updated 11/24/20 @ 13:34 by Daniela Peace) New onset of congestive heart failure (Acute) Elevated troponin (Acute) Elevated serum creatinine (Acute) Subjective: Patient is a 45 y/o male who is comfortably resting in bed, alert and oriented x3. Patient is having no symptoms at this time, however, is having a difficult time coming to terms with his new medical conditions as he is observed occasionally weeping with the nursing staff. Objective: Clinical Impression(s) from Imaging Studies Chest X-Ray 11/22/20 15:39 IMPRESSION: Cardiomegaly. Electronically Signed: Kvng Turcios DO at 16:16 EDT Tel [phone], Service support , Chest CTA 11/22/20 16:17 IMPRESSION: No demonstrated pulmonary embolism or arterial dissection. Bilateral pleural effusions, right more than left. Electronically Signed: Kvng Turcios DO at 18:37 EDT Tel [phone], Service support , Vitals/I&O's: Vital Signs Temp Pulse Resp BP Pulse Ox 98 F 71 14 128/91 H 97 11/24/20 13:40 11/24/20 14:43 11/24/20 14:43 11/24/20 14:43 11/24/20 14:43 Oxygen Flow Rate (L/min) 2 Oxygen Delivery Method Room Air Weight: 214 lb 15.211 oz Body Mass Index (BMI) 32.8 Intake and Output for Last 24 Hours 11/22/20 11/23/20 11/24/20 23:59 23:59 23:59 Intake Total 680 / 680 1000 / 1200 643 / 643 Output Total 630 / 630 2125 / 2125 2600 / 2600 Balance 50 / 50 -1125 / -925 -1956 / General: Alert, Oriented x3, Cooperative HEENT: Atraumatic Neck: Supple Lungs: Clear to auscultation, Normal air movement Cardiovascular: Regular Rhythm, No murmurs, Tachycardic, - Abdomen: Bowel Sounds Present, Soft, Non Tender Extremities: No edema, Capillary Refill Less than 3 Seconds Skin: No rashes, No breakdown Musculoskeletal: No Tenderness to Palpation of Joints or Extremities Neurological: Cranial nerves II-XII grossly intact Psych/Mental Status: Normal Affect, Appropriate Laboratory Results 11/23/20 17:35: Sodium 138, Potassium 4.1, Chloride 103, Carbon Dioxide 27.0, Anion Gap 8, BUN 24 H, Creatinine 1.54 H, Estim Creat Clear Calc 59.30, Est GFR (MDRD) Af Amer 62, Est GFR (MDRD) Non-Af 52 L, BUN/Creatinine Ratio 15.6, Glucose 97, Calcium 8.4 L, Magnesium 2.1 11/24/20 05:00: Sodium 140, Potassium 3.8, Chloride 103, Carbon Dioxide 29.0, Anion Gap 8, BUN 21 H, Creatinine 1.23, Estim Creat Clear Calc 74.24, Est GFR (MDRD) Af Amer 81, Est GFR (MDRD) Non-Af 67, BUN/Creatinine Ratio 17.1, Glucose 87, Calcium 8.5, Total Bilirubin 0.80, AST 317 H, ALT 263 H, Alkaline Phosphatase 46, Total Protein 5.8 L, Albumin 2.7 L, Globulin 3.1, Albumin/Globulin Ratio 0.9 11/24/20 05:00: B-Natriuretic Peptide 1649.0 H Current Medications Acetaminophen (Acetaminophen 325 Mg Tablet) 650 mg PO Q6H PRN PRN PRN Reason: Pain Score 1-10/Temp > 100.7 F Amiodarone HCl (Amiodarone 200 Mg Tablet) 200 mg PO TID [facility] Carvedilol (Carvedilol 6.25 Mg Tablet) 6.25 mg PO BID [facility] Furosemide (Furosemide 40 Mg/4 Ml Vial) 40 mg IV DAILY [facility] Last Admin: 11/24/20 10:01 Dose: 40 mg Documented by: Heparin Sodium (Porcine) (Heparin Injection (Vial) 5,000 Unit/Ml Vial) 5,000 unit SC Q8 [facility] Last Admin: 11/24/20 13:34 Dose: Not Given Documented by: Hydralazine HCl (Hydralazine 20 Mg/Ml Vial) 10 mg IV Q4H PRN PRN PRN Reason: SBP > 160 or DBP > 110 Hydralazine HCl (Hydralazine 50 Mg Tablet) 50 mg PO BID [facility] Last Admin: 11/24/20 08:25 Dose: 50 mg Documented by: Sodium Chloride () 1,000 mls @ 0 mls/hr IV .Q0M [facility] Last Admin: 11/24/20 10:37 Dose: 15 mls/hr Documented by: Lisinopril (Lisinopril 5 Mg Tablet) 5 mg PO DAILY [facility] Last Admin: 11/24/20 09:55 Dose: 5 mg Documented by: Ondansetron HCl (Ondansetron 4 Mg/2 Ml Vial) 4 mg IV Q8H PRN PRN PRN Reason: NAUSEA/VOMITING STROKE Vital Signs/Narrative: Vital Signs Temp Pulse Resp BP Pulse Ox 11/24/20 14:43 71 14 128/91 H 97 11/24/20 14:26 74 14 132/95 H 98 11/24/20 13:40 98 F 74 14 127/95 H 99 11/24/20 13:24 97.8 F 76 14 128/97 H 99 Medical Necessity - Tobacco Use Smoking Status: Former smoker Tobacco Use: Chew Assessment/Plan All Active Problems (Last Updated 11/24/20 @ 13:34 by Daniela Peace) Acute systolic (congestive) heart failure (Acute) Cardiomyopathy, dilated, nonischemic (Acute) New onset of congestive heart failure (Acute) Elevated troponin (Acute) Elevated serum creatinine (Acute) Patient is a 45-year-old male who reported to the ED on 11/21/2020 for progressive shortness of breath. Cardiology now following. Echocardiogram yesterday revealed an estimated ejection fraction of 15%, moderately dilated left ventricle, stage III diastolic dysfunction. Cardiac catheterization revealed normal coronary coronary arteries as well as dilated cardiomyopathy. Overnight telemetry revealed asymptomatic nonsustained V. tach. 1) new onset CHF Assessment - Patient classifies for NYHA class III HF cardiology - Patient classifies for new onset ACC stage C per cardiology - Ejection fraction 15% Plan - Patient initiated on labetalol, furosemide, carvedilol, lisinopril 2) Non ischemic cardiomyopathy Assessment - Left ventricular ejection fraction of 15% confirmed by cardiac catheterization as well as echocardiographic evaluation Plan - Carvedilol 6.25 mg twice daily - Continue Lasix 40 mg daily - Continue lisinopril - Candidate for implantable defibrillator if ejection fraction does not improve in 90 days 3) Non sustained V-Tach Assessment - Several nonsustained episodes observed on telemetry overnight Plan - Bolus of amiodarone and oral amiodarone ordered - Attempting to get LifeVest approved through insurance - Possible candidate for 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 Muro <Shar Muro - Last Filed: 11/24/20 15:20> Vitals/I&O's: Vital Signs Temp Pulse Resp BP Pulse Ox 36.6 C 71 14 128/91 H 97 11/24/20 13:40 11/24/20 14:43 11/24/20 14:43 11/24/20 14:43 11/24/20 14:43 Oxygen Flow Rate (L/min) 2 Oxygen Delivery Method Room Air Weight: 97.5 kg Body Mass Index (BMI) 32.8 Intake and Output for Last 24 Hours 11/22/20 11/23/20 11/24/20 23:59 23:59 23:59 Intake Total 680 / 680 1000 / 1200 643 / 643 Output Total 630 / 630 2125 / 2125 2600 / 2600 Balance 50 / 50 -1125 / -925 -1956 / -1956 General: Alert, Cooperative HEENT: Atraumatic Neck: Supple Lungs: Clear to auscultation, Normal air movement Cardiovascular: Regular Rhythm, No murmurs, Tachycardic Abdomen: Bowel Sounds Present, Soft, Non Tender Extremities: No edema, Capillary Refill Less than 3 Seconds Skin: No rashes, No breakdown Psych/Mental Status: Normal Affect, Appropriate Laboratory Results 11/23/20 17:35: Sodium 138, Potassium 4.1, Chloride 103, Carbon Dioxide 27.0, Anion Gap 8, BUN 24 H, Creatinine 1.54 H, Estim Creat Clear Calc 59.30, Est GFR (MDRD) Af Amer 62, Est GFR (MDRD) Non-Af 52 L, BUN/Creatinine Ratio 15.6, Glucose 97, Calcium 8.4 L, Magnesium 2.1 11/24/20 05:00: Sodium 140, Potassium 3.8, Chloride 103, Carbon Dioxide 29.0, Anion Gap 8, BUN 21 H, Creatinine 1.23, Estim Creat Clear Calc 74.24, Est GFR (MDRD) Af Amer 81, Est GFR (MDRD) Non-Af 67, BUN/Creatinine Ratio 17.1, Glucose 87, Calcium 8.5, Total Bilirubin 0.80, AST 317 H, ALT 263 H, Alkaline Phosphatase 46, Total Protein 5.8 L, Albumin 2.7 L, Globulin 3.1, Albumin/Globulin Ratio 0.9 11/24/20 05:00: B-Natriuretic Peptide 1649.0 H Current Medications Acetaminophen (Acetaminophen 325 Mg Tablet) 650 mg PO Q6H PRN PRN PRN Reason: Pain Score 1-10/Temp > 100.7 F Amiodarone HCl (Amiodarone 200 Mg Tablet) 200 mg PO TID [facility] Last Admin: 11/24/20 14:48 Dose: 200 mg Documented by: Carvedilol (Carvedilol 6.25 Mg Tablet) 6.25 mg PO BID [facility] Furosemide (Furosemide 40 Mg/4 Ml Vial) 40 mg IV DAILY [facility] Last Admin: 11/24/20 10:01 Dose: 40 mg Documented by: Heparin Sodium (Porcine) (Heparin Injection (Vial) 5,000 Unit/Ml Vial) 5,000 unit SC Q8 [facility] Last Admin: 11/24/20 13:34 Dose: Not Given Documented by: Hydralazine HCl (Hydralazine 20 Mg/Ml Vial) 10 mg IV Q4H PRN PRN PRN Reason: SBP > 160 or DBP > 110 Hydralazine HCl (Hydralazine 50 Mg Tablet) 50 mg PO BID [facility] Last Admin: 11/24/20 08:25 Dose: 50 mg Documented by: Sodium Chloride () 1,000 mls @ 0 mls/hr IV .Q0M [facility] Last Admin: 11/24/20 10:37 Dose: 15 mls/hr Documented by: Lisinopril (Lisinopril 5 Mg Tablet) 5 mg PO DAILY [facility] Last Admin: 11/24/20 09:55 Dose: 5 mg Documented by: Ondansetron HCl (Ondansetron 4 Mg/2 Ml Vial) 4 mg IV Q8H PRN PRN PRN Reason: NAUSEA/VOMITING STROKE Vital Signs/Narrative: Vital Signs Temp Pulse Resp BP Pulse Ox 11/24/20 14:43 71 14 128/91 H 97 11/24/20 14:26 74 14 132/95 H 98 11/24/20 13:40 36.6 C 74 14 127/95 H 99 11/24/20 13:24 36.6 C 76 14 128/97 H 99 Assessment/Plan Patient seen and examined independently. Data reviewed. I agree with the above note by the physician internal medicine physician assistant. 1. Acute heart failure with a reduced ejection fraction EF 15% Overall improving Normal coronaries Plan: * Continue with IV diuresis with furosemide * Started on hydralazine. Holding off on [place] inhibitor/angiotensin receptor blockers given the chronic kidney disease at this time. * Cardiology following * amiodarone * life vest 2. Elevated troponin 2/2 to demand with the patient heart failure Has been trending down 3. CKD 3A Monitor closely while patient is on furosemide. No need for renal placement therapy at this time. 4. VTE prophylaxis with subcu heparin. Inpatient E&M: 29770 Subs Hosp L2
--- NOTE | 2020-11-24 15:00 | CASEMGMT ---
Late entry-Call to Lifevest rep to notify of clean cath and pt possible discharge tomorrow 11/25, voices understanding and states nurse will come with vest once approved through insurance. Kayden, PCU charge, aware and not to discharge pt until Lifevest in place, voices understanding. SStamna RN CM
[2020-11-24] MEDS: Carvedilol 6.25 MG Tablet PO (22:29)
[2020-11-25 02:55] VITALS: PULSE 73
[2020-11-25 04:08] VITALS: BP 113/78; PULSE 71; RESP 16; TEMP 36.7; O2SAT 99
[2020-11-25] MEDS: Amiodarone 200 MG Tablet PO (06:13)
[2020-11-25] MEDS: Heparin Injection (Vial) 5,000 UNIT/ML VIAL 5000 UNIT SC (06:13)
[2020-11-25 07:14] VITALS: PULSE 71
[2020-11-25 07:53] LABS: Anion Gap 8 (5-15); BUN 17 mg/dL (7-18); BUN/Creat Ratio 15.9 RATIO (10-20); Calcium,Total 8.1 mg/dL (8.5-10.1); Chloride 104 mmol/L (98-107); Creatinine, Serum 1.07 mg/dL (0.70-1.30); EST Glomerular Filtration Rate 78 mL/min (>60); Est Glom Filt Rate - Afr Amer 95 mL/min (>60); Estimated Creatinine Clearance 85.35 ml/min; Glucose 95 mg/dL (74-106); Potassium 3.6 mmol/L (3.5-5.1); Sodium Level 138 mmol/L (136-145)
[2020-11-25 08:30] VITALS: BP 128/89; PULSE 82; RESP 18; TEMP 36.2; O2SAT 96; O2SAT 98
[2020-11-25] MEDS: Carvedilol 6.25 MG Tablet PO (08:36)
[2020-11-25] MEDS: Lisinopril 5 MG Tablet PO (08:36)
[2020-11-25 08:37] VITALS: PULSE 82
[2020-11-25] MEDS: hydrALAZINE 50 MG Tablet PO (08:37)
--- NOTE | 2020-11-25 09:56 | PCM.DC ---
- Discharge Diagnoses Current Active Problems: Current Active and Chronic Problems (Last Updated 11/24/20 @ 16:02 by Daniela Peace) New onset of congestive heart failure (Acute) Elevated troponin (Acute) Elevated serum creatinine (Acute) You will use the following diet at home:: Cardiac Your food should be the consistency of: Regular Your liquids should be the consistency of: Regular/Thin Discharge Activity: Return to Normal Activity Return to work on:: 12/11/20 - Per cardiology Allergies/Adverse Reactions: Allergies No Known Allergies Allergy (Verified 11/22/20 14:36) Medications to take at Discharge Amiodarone HCl [Cordarone] 200 mg PO BID #30 tab 11/25/20 Carvedilol [Coreg (Beta Eb)] 6.25 mg PO BID #60 tab 11/25/20 Furosemide [Lasix] 40 mg PO DAILY #30 tablet 11/25/20 Hydralazine HCl 50 mg PO BID #60 tablet 11/25/20 Lisinopril 5 mg PO DAILY #30 tablet 11/25/20 Potassium Chloride Oral Tablet [K-Dur] 10 meq PO DAILY #30 tab 11/25/20 Primary Care Physician: [facility] Doctor,Out of [NON-STAFF] - Test Results: Test results from this visit will be discussed in further detail at your follow-up appointment, if applicable. Please Follow Up With: Niels Beasley MD When: Within the next week Proposed Discharge Date: 11/25/20 - Pending visit from cardiology and LifeVest issued to patient
[2020-11-25] MEDS: Furosemide 40 MG/4 ML Vial IV (11:08)
--- NOTE | 2020-11-25 12:23 | PCM.DC.SUM ---
<Mat Spicer - Last Filed: 11/25/20 12:23> Discharge Date and Diagnosis - Problem List Patient Problems: Active and Suspected Problems (Last Updated 11/24/20 @ 16:02 by Daniela Peace) New onset of congestive heart failure (Acute) Elevated troponin (Acute) Elevated serum creatinine (Acute) Date of Admission: 11/22/20 - Primary Discharge Diagnosis Acute Problems: Active Problems (Last Updated 11/24/20 @ 16:02 by Daniela Peace) New onset of congestive heart failure (Acute) Non ischemic cardiomyopathy (Acute) Nonsustained V. tach (Acute) Elevated troponin (Acute) Elevated serum creatinine (Acute) Hypertension (Chronic) - Secondary Discharge Diagnosis Chronic Problems: Chronic Problems (Last Updated 11/24/20 @ 16:02 by Daniela Peace) Essential (primary) hypertension (Chronic) Hospital Course and Treatment Imaging Results: Clinical Impression(s) from Imaging Studies Chest X-Ray 11/22/20 15:39 IMPRESSION: Cardiomegaly. Electronically Signed: Kvng Turcios DO at 16:16 EDT Tel [phone], Service support , Chest CTA 11/22/20 16:17 IMPRESSION: No demonstrated pulmonary embolism or arterial dissection. Bilateral pleural effusions, right more than left. Electronically Signed: Kvng Turcios DO at 18:37 EDT Tel [phone], Service support , Procedures: 2-D Echocardiogram, Cardiac catheterization Summary of Care Provided: Patient is a 45-year-old male who reported to the ED on 11/21/2020 for progressive shortness of breath. Cardiology brought on board to help manage the patient's new onset CHF, nonischemic cardiomyopathy, and nonsustained V. tach. Bolus and scheduled amiodarone was able to manage V. tach overnight, as no episodes were observed since. LifeVest also issued to patient upon discharge. Mr. Finnegan is now considered stable for outpatient management. Patient is to follow-up with Dr. Beasley of the [facility] within the next 2 weeks. Patient advised by the mid level business analyst that he is not to drive for the next 90 days, after which he will be reevaluated. 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 1) new onset CHF Assessment - Patient classifies for NYHA class III HF cardiology - Patient classifies for new onset ACC stage C per cardiology - Ejection fraction 15% Plan - Initiated on lisinopril 5 mg daily at discharge - Initiated on carvedilol 6.2 mg twice daily at discharge - Initiated on Lasix 40 mg daily at discharge - Follow-up with the [facility] within the next 2 weeks 2) Non ischemic cardiomyopathy Assessment - Left ventricular ejection fraction of 15% confirmed by cardiac catheterization as well as echocardiographic evaluation Plan - Initiated on lisinopril 5 mg daily at discharge - Initiated on carvedilol 6.2 mg twice daily at discharge - Initiated on Lasix 40 mg daily at discharge - Follow-up with the [facility] within the next 2 weeks - Candidate for implantable defibrillator if ejection fraction does not improve in 90 days 3) Non sustained V-Tach Assessment - No episodes of V. tach observed on telemetry overnight Plan - Initiated on amiodarone hydrochloride 200 mg twice daily at discharge - LifeVest issued to patient at discharge - Patient not to drive for 90 days, after which he will be reevaluated - Excused from work - Patient advised that if LifeVest defibrillate's him, he is to report to the emergency department immediately - Possible candidate for FISHING MANAGER?D device 4) Hypertension Assessment - BP 147/102 Plan - Initiated on Lasix 40 mg daily at discharge - Initiated on Lisinopril 5 mg daily at discharge 5) Elevated creatinine Assessment -1.07 as of 11/25/2020 - Continuing to trend down from yesterday Plan - Resolved DVT Prophylaxis - SC Heparin Patient seen by Mat Spicer PA-C, under the supervision of Dr. Muro Patient Problems: Active and Suspected Problems (Last Updated 11/24/20 @ 16:02 by Daniela Peace) New onset of congestive heart failure (Acute) Elevated troponin (Acute) Elevated serum creatinine (Acute) Subjective: Patient is a 45-year-old male who is comfortably resting in the chair, alert and oriented x3. Patient was briefed on all 6 new medications that he is being discharged with, as well as instructions for the LifeVest. Patient understands and is in agreement with all. Denies chest pain, shortness of breath, cough, palpitations. Objective: Clinical Impression(s) from Imaging Studies Chest X-Ray 11/22/20 15:39 IMPRESSION: Cardiomegaly. Electronically Signed: Kvng Turcios DO at 16:16 EDT Tel [phone], Service support , Chest CTA 11/22/20 16:17 IMPRESSION: No demonstrated pulmonary embolism or arterial dissection. Bilateral pleural effusions, right more than left. Electronically Signed: Kvng Turcios DO at 18:37 EDT Tel [phone], Service support , - Physical Exam Vitals/I&O's: Vital Signs Temp Pulse Resp BP Pulse Ox 97.1 F L 82 18 128/89 H 98 11/25/20 08:30 11/25/20 08:37 11/25/20 08:30 11/25/20 08:30 11/25/20 08:30 Oxygen Flow Rate (L/min) 2 Oxygen Delivery Method Room Air Weight: 211 lb 10.3 oz Body Mass Index (BMI) 32.8 Intake and Output for Last 24 Hours 11/23/20 11/24/20 11/25/20 23:59 23:59 23:59 Intake Total 1000 / 1200 1187.75 / 1387.75 515 / 515 Output Total 2125 / 2125 3100 / 3500 400 / 400 Balance -1125 / -925 -1912.25 / -2112.25 115 / 115 General: Alert, Oriented x3, Cooperative HEENT: Atraumatic, PERRLA, EOMI, Normocephalic Neck: Supple, No JVD, Negative Carotid Bruits Lungs: Clear to auscultation, Normal air movement Cardiovascular: Regular rate, No murmurs Abdomen: Bowel Sounds Present, Soft, Non Tender Extremities: No edema, Capillary Refill Less than 3 Seconds, Edema - 1+ pitting edema, - Skin: No rashes, No breakdown Musculoskeletal: No Tenderness to Palpation of Joints or Extremities Neurological: Cranial nerves II-XII grossly intact Psych/Mental Status: Normal Affect, Appropriate Laboratory Results 11/25/20 06:50: Sodium 138, Potassium 3.6, Chloride 104, Carbon Dioxide 26.0, Anion Gap 8, BUN 17, Creatinine 1.07, Estim Creat Clear Calc 85.35, Est GFR (MDRD) Af Amer 95, Est GFR (MDRD) Non-Af 78, BUN/Creatinine Ratio 15.9, Glucose 95, Calcium 8.1 L Current Medications Acetaminophen (Acetaminophen 325 Mg Tablet) 650 mg PO Q6H PRN PRN PRN Reason: Pain Score 1-10/Temp > 100.7 F Amiodarone HCl (Amiodarone 200 Mg Tablet) 200 mg PO TID [facility] Last Admin: 11/25/20 06:13 Dose: 200 mg Documented by: Carvedilol (Carvedilol 6.25 Mg Tablet) 6.25 mg PO BID [facility] Last Admin: 11/25/20 08:36 Dose: 6.25 mg Documented by: Furosemide (Furosemide 40 Mg/4 Ml Vial) 40 mg IV DAILY [facility] Last Admin: 11/25/20 11:08 Dose: 40 mg Documented by: Heparin Sodium (Porcine) (Heparin Injection (Vial) 5,000 Unit/Ml Vial) 5,000 unit SC Q8 [facility] Last Admin: 11/25/20 06:13 Dose: 5,000 unit Documented by: Hydralazine HCl (Hydralazine 20 Mg/Ml Vial) 10 mg IV Q4H PRN PRN PRN Reason: SBP > 160 or DBP > 110 Hydralazine HCl (Hydralazine 50 Mg Tablet) 50 mg PO BID [facility] Last Admin: 11/25/20 08:37 Dose: 50 mg Documented by: Sodium Chloride () 1,000 mls @ 0 mls/hr IV .Q0M [facility] Last Infusion: 11/25/20 02:42 Dose: Infused Documented by: Lisinopril (Lisinopril 5 Mg Tablet) 5 mg PO DAILY [facility] Last Admin: 11/25/20 08:36 Dose: 5 mg Documented by: Ondansetron HCl (Ondansetron 4 Mg/2 Ml Vial) 4 mg IV Q8H PRN PRN PRN Reason: NAUSEA/VOMITING Discharge Activity: Return to Normal Activity Return to work on:: 02/26/21 - Per cardiology Home Medications: Medications to take at Discharge Amiodarone HCl [Cordarone] 200 mg PO BID #30 tab 11/25/20 Carvedilol [Coreg (Beta Eb)] 6.25 mg PO BID #60 tab 11/25/20 Furosemide [Lasix] 40 mg PO DAILY #30 tablet 11/25/20 Hydralazine HCl 50 mg PO BID #60 tablet 11/25/20 Lisinopril 5 mg PO DAILY #30 tablet 11/25/20 Potassium Chloride Oral Tablet [K-Dur] 10 meq PO DAILY #30 tab 11/25/20 Following Prescriptions Were Given to Patient: Amiodarone HCl [Cordarone] 200 mg PO BID #30 tab Transmission Status: Received by [facility] [id number] Carvedilol [Coreg (Beta Eb)] 6.25 mg PO BID #60 tab Transmission Status: Received by [facility] [id number] Hydralazine HCl 50 mg PO BID #60 tablet Transmission Status: Received by [facility] [id number] Potassium Chloride Oral Tablet [K-Dur] 10 meq PO DAILY #30 tab Transmission Status: Received by [facility] [id number] Furosemide [Lasix] 40 mg PO DAILY #30 tablet Transmission Status: Received by [facility] [id number] Lisinopril 5 mg PO DAILY #30 tablet Transmission Status: Received by [facility] [id number] Primary Care Physician: [facility] Doctor,Out of [NON-STAFF] - Please Follow Up With: Niels Beasley MD When: Within the next week Disposition: Home Minutes spent on discharge:: 35 Patient Condition:: Stable Medical Necessity - Tobacco Use Smoking Status: Former smoker Tobacco Use: Chew Meaningful Use Info Meaningful Use Diagnoses (Choose all that apply): CHF - CHF CAROLINA/ARB ordered at discharge?: Yes Documented LVEF (%): 15 <Shar Muro - Last Filed: 11/25/20 13:10> Discharge Date and Diagnosis Date of Discharge: 11/25/20 - Primary Discharge Diagnosis Acute Problems: Active Problems (Last Updated 11/24/20 @ 16:02 by Daniela Peace) New onset of congestive heart failure (Acute) Elevated troponin (Acute) Elevated serum creatinine (Acute) - Secondary Discharge Diagnosis Chronic Problems: Chronic Problems (Last Updated 11/24/20 @ 16:02 by Daniela Peace) Essential (primary) hypertension (Chronic) Hospital Course and Treatment Procedures: 2-D Echocardiogram, Cardiac catheterization Summary of Care Provided: Patient seen and examined independently. Data reviewed. I agree with the above note by the physician plumber assistant. The patient is a 45 year old M presents with shortness of breath. Essential patient was found to have nonischemic cardiomyopathy with an EF of 15%. He underwent left heart catheterization that showed normal coronaries. Patient's course was complicated by some nonsustained VT and some ventricular ectopy. Likely related with the patient's profound cardiomyopathy. In addition to medications, patient will have a LifeVest upon discharge. Patient be following up with cardiology in regards to further management of his CHF and cardiomyopathy. Patient has shown that he is very motivated to follow instructions and follow-up. Previously, patient had not been established any physician over the past 10 years but has expressed great desire to take ownership and to help his condition is much as possible. Upon discharge, patient is recommended to limit his activity to walking very short distances and to limit any kind heavy lifting no more than 20 pounds at this time. Advised him that that will eventually be let up over time. Patient eventually get involved in cardiac rehab but they will be at the discretion of the mid level business analyst. Patient is medically stable for discharge. Discussed with cardiology today. [] - Physical Exam Vitals/I&O's: Vital Signs Temp Pulse Resp BP Pulse Ox 36.2 C L 82 18 128/89 H 98 11/25/20 08:30 11/25/20 08:37 11/25/20 08:30 11/25/20 08:30 11/25/20 08:30 Oxygen Flow Rate (L/min) 2 Oxygen Delivery Method Room Air Weight: 96 kg Body Mass Index (BMI) 32.8 Intake and Output for Last 24 Hours 11/23/20 11/24/20 11/25/20 23:59 23:59 23:59 Intake Total 1000 / 1200 1187.75 / 1387.75 515 / 515 Output Total 2124 / 2124 3100 / 3500 400 / 400 Balance -1125 / -925 -1911.25 / -2111.25 115 / 115 General: Alert, Cooperative HEENT: Atraumatic, Normocephalic Lungs: Clear to auscultation, Normal air movement, No rhonchi, No wheeze Cardiovascular: Regular rate, No murmurs Abdomen: Bowel Sounds Present, Soft, Non Tender Extremities: No edema, Capillary Refill Less than 3 Seconds, Edema Skin: No rashes, No breakdown Laboratory Results 11/25/20 06:50: Sodium 138, Potassium 3.6, Chloride 104, Carbon Dioxide 26.0, Anion Gap 8, BUN 17, Creatinine 1.07, Estim Creat Clear Calc 85.35, Est GFR (MDRD) Af Amer 95, Est GFR (MDRD) Non-Af 78, BUN/Creatinine Ratio 15.9, Glucose 95, Calcium 8.1 L Current Medications Acetaminophen (Acetaminophen 325 Mg Tablet) 650 mg PO Q6H PRN PRN PRN Reason: Pain Score 1-10/Temp > 100.7 F Amiodarone HCl (Amiodarone 200 Mg Tablet) 200 mg PO TID [facility] Last Admin: 11/25/20 06:13 Dose: 200 mg Documented by: Carvedilol (Carvedilol 6.25 Mg Tablet) 6.25 mg PO BID [facility] Last Admin: 11/25/20 08:36 Dose: 6.25 mg Documented by: Furosemide (Furosemide 40 Mg/4 Ml Vial) 40 mg IV DAILY [facility] Last Admin: 11/25/20 11:08 Dose: 40 mg Documented by: Heparin Sodium (Porcine) (Heparin Injection (Vial) 5,000 Unit/Ml Vial) 5,000 unit SC Q8 [facility] Last Admin: 11/25/20 06:13 Dose: 5,000 unit Documented by: Hydralazine HCl (Hydralazine 20 Mg/Ml Vial) 10 mg IV Q4H PRN PRN PRN Reason: SBP > 160 or DBP > 110 Hydralazine HCl (Hydralazine 50 Mg Tablet) 50 mg PO BID [facility] Last Admin: 11/25/20 08:37 Dose: 50 mg Documented by: Sodium Chloride () 1,000 mls @ 0 mls/hr IV .Q0M [facility] Last Infusion: 11/25/20 02:42 Dose: Infused Documented by: Lisinopril (Lisinopril 5 Mg Tablet) 5 mg PO DAILY [facility] Last Admin: 11/25/20 08:36 Dose: 5 mg Documented by: Ondansetron HCl (Ondansetron 4 Mg/2 Ml Vial) 4 mg IV Q8H PRN PRN PRN Reason: NAUSEA/VOMITING Discharge Diet: No Restrictions Discharge Activity: Return to Normal Activity Disposition: Home Minutes spent on discharge:: 35 Patient Condition:: Stable Medical Necessity - Tobacco Use Smoking Status: Former smoker Tobacco Use: Chew Meaningful Use Info Meaningful Use Diagnoses (Choose all that apply): CHF - CHF CAROLINA/ARB ordered at discharge?: Yes Documented LVEF (%): 15 Inpatient E&M: 93462 Disch Hosp
--- NOTE | 2020-11-25 12:54 | PCM.PN.CARD ---
Objective: Vital Signs Temp Pulse Resp BP Pulse Ox 97.1 F L 82 18 128/89 H 98 11/25/20 08:30 11/25/20 08:37 11/25/20 08:30 11/25/20 08:30 11/25/20 08:30 Oxygen Flow Rate (L/min) 2 Oxygen Delivery Method Room Air Weight: 211 lb 10.3 oz Body Mass Index (BMI) 32.8 Intake and Output for Last 24 Hours 11/23/20 11/24/20 11/25/20 23:59 23:59 23:59 Intake Total 1000 / 1200 1187.75 / 1387.75 515 / 515 Output Total 5 / 212 3100 / 3500 400 / 400 Balance -1125 / -925 -1912.25 / -2111.25 115 / 115 Abdomen: Bowel Sounds Present, Soft, Non Tender, No HSM, No Organomegaly Extremities: No Cyanosis, No Clubbing, No edema Neurological: No Focal Motor or Sensory Deficit Psych/Mental Status: Appropriate 11/25/20 06:50: Sodium 138, Potassium 3.6, Chloride 104, Carbon Dioxide 26.0, Anion Gap 8, BUN 17, Creatinine 1.07, Est GFR (MDRD) Af Amer 95, Est GFR (MDRD) Non-Af 78, BUN/Creatinine Ratio 15.9, Glucose 95, Calcium 8.1 L Rhythm: Cardiac rhythm is normal sinus EKG: ECHO: Severe LV dilatation with severe LV systolic dysfunction with ejection fraction in the range of 15 Medical Necessity - Tobacco Use Smoking Status: Former smoker Tobacco Use: Chew Assessment/Plan 45-year-old patient with severe dilated cardiomyopathy Patient primary edger technician is plan seen and evaluated today at bedside, at bedside Doing well clinically stable no further episode of nonsustained ventricular tachycardia Assessment and plan;. 1. Patient has severe dilated cardiomyopathy, with EF around 15% 2. All his current medication has been discussed 3. Patient has LifeVest. Patient advised not to drive due to the risk of cardiac arrhythmia with V. tach and will follow with a edger technician with the plan of repeating echocardiogram and discussing further plan.
== END 2020-11-25 13:41 | disposition home or self-care (01) | DRG 286 ==
LOC: ED 16:15 → PCU 17:43
PROVIDERS: Internal Medicine Interventional Cardiology; Admitting Provider Internal Medicine; Emergency Provider Emergency Medicine
DX: I13.0 Hypertensive heart and chronic kidney disease with heart failure and stage 1 through stage 4 chronic kidney disease, or unspecified chronic kidney disease (principal); I50.21 Acute systolic (congestive) heart failure; I47.2 Ventricular tachycardia; Z86.718 Personal history of other venous thrombosis and embolism; F17.220 Nicotine dependence, chewing tobacco, uncomplicated; N18.31 Chronic kidney disease, stage 3a; I42.0 Dilated cardiomyopathy
CPT/HCPCS: 36415; 71045; 71275; 80048; 80053; 83735; 83880; 84443; 84484; 85025; 85379; 93005; 93306; 93458; 97802; 99152; 99153; 99251; 99285; 99406; J7030; Q9957; Q9967; A4216; C1769; C1894; C8929; G0463; J1940

== ENCOUNTER → 2020-12-15 10:42 | Outpatient (CLI) | payer OTHER, SELFPAY ==
[2020-12-15 10:04] VITALS: BMI 29.7
[2020-12-15 11:43] LABS: Anion Gap 4 (5-15); BUN 17 mg/dL (7-18); BUN/Creat Ratio 14.8 RATIO (10-20); Calcium,Total 9.1 mg/dL (8.5-10.1); Chloride 100 mmol/L (98-107); Creatinine, Serum 1.15 mg/dL (0.70-1.30); EST Glomerular Filtration Rate 72 mL/min (>60); Est Glom Filt Rate - Afr Amer 87 mL/min (>60); Glucose 107 mg/dL (74-106); Potassium 3.8 mmol/L (3.5-5.1); Sodium Level 133 mmol/L (136-145)
== END ==
PROVIDERS: PCP Family Medicine; Referring Provider Internal Medicine Cardiovascular Disease; Visit Provider Internal Medicine Cardiovascular Disease
DX: I50.9 Heart failure, unspecified (principal)
CPT/HCPCS: 36415; 80048

== ENCOUNTER → 2021-01-29 10:55 | Outpatient (CLI) | payer OTHER, SELFPAY ==
[2020-12-15 10:04] VITALS: BMI 29.7
[2021-01-29 12:05] LABS: Thyroid Stim Hormone (TSH) 1.53 uIU/mL (0.358-3.74)
== END ==
PROVIDERS: PCP Family Medicine; Referring Provider Internal Medicine Cardiovascular Disease; Visit Provider Internal Medicine Cardiovascular Disease
DX: I42.0 Dilated cardiomyopathy (principal); I11.0 Hypertensive heart disease with heart failure; I50.42 Chronic combined systolic (congestive) and diastolic (congestive) heart failure; I47.2 Ventricular tachycardia; I25.2 Old myocardial infarction; Z95.810 Presence of automatic (implantable) cardiac defibrillator; Z79.899 Other long term (current) drug therapy
CPT/HCPCS: 36415; 84443

== ENCOUNTER → 2021-02-26 12:47 | Outpatient (CLI) | payer OTHER, SELFPAY ==
[2020-12-15 10:04] VITALS: BMI 29.7
--- NOTE | 2021-02-26 12:55 | ECHOD_ITS ---
Reason For Study: CHF Procedure This was a 2D Doppler, Color Flow transthoracic echocardiogram. Exam performed in department. Left Ventricle Moderately dilated left ventricle. The estimated ejection fraction is 30 %. Stage 1 diastolic dysfunction. There is moderate to severe global hypokinesis of the left ventricle. Right Ventricle Normal RV size. Normal systolic function. Atria The left atrium is mildly enlarged. Normal right atrium. Mitral Valve Normal mitral valve. Tricuspid Valve Normal tricuspid valve. Mild (1+) tricuspid valve insufficiency. Pulmonary artery systolic pressure is 40 mmHg. Aortic Valve Normal aortic valve. Trisinus/trileaflet aortic valve. Pulmonic Valve Normal pulmonic valve. Great Vessels Normal aortic root. The pulmonary artery is normal size. Normal inferior vena cava. Pericardium/Pleural No pericardial effusion. MMode/2D Measurements & Calculations LVIDd: 6.2 cm IVSd: 0.90 cm Ao root diam: 3.5 cm LVIDs: 4.8 cm LVPWd: 0.86 cm RVDd: 4.2 cm FS: 22.3 % LAV(MOD-bp): 88.2 ml LA A4 area: 23.1 cm2 LA dimension(2D): 4.2 cm LAV(MOD-bp) Indexed: 42.6 ml/m2 LAV(MOD-sp2): 104.8 ml LAV(MOD-sp4): 72.8 ml RA A4 area: 18.3 cm2 Time Measurements MV dec time: 0.22 sec Doppler Measurements & Calculations MV E max christ: 65.1 cm/sec Lat Peak E' Christ: 3.1 cm/sec Med Peak E' Christ: 4.5 cm/sec MV A max christ: 90.7 cm/sec E/E' lat: 21.0 E/E' med: 14.6 MV E/A: 0.72 Ao V2 max: 173.6 cm/sec LV V1 max: 90.7 cm/sec PA V2 max: 104.5 cm/sec Ao max P.1 mmHg LV V1 max P.4 mmHg PI end-d christ: 135.6 cm/sec TR max christ: 296.4 cm/sec TR max P.1 mmHg ECHO/Echo Complete Interpretation Summary Moderately dilated left ventricle. The estimated ejection fraction is 30 %. There is moderate to severe global hypokinesis of the left ventricle. Stage 1 diastolic dysfunction. Pulmonary artery systolic pressure is 40 mmHg. The global longitudinal strain is severely abnormal. The global longitudinal st rain = -11.7% (abnormal). Compared to previous study, the left ventricular systolic function has improved.. Ordering Physician: Niels Beasley Referring Physician: BRIDGETTE MATOS Performed By: Violeta Meng RDCS, RVT
[2021-02-26 15:07] LABS: Anion Gap 7 (5-15); BUN 18 mg/dL (7-18); BUN/Creat Ratio 15.1 RATIO (10-20); Calcium,Total 9.5 mg/dL (8.5-10.1); Chloride 99 mmol/L (98-107); Creatinine, Serum 1.19 mg/dL (0.70-1.30); EST Glomerular Filtration Rate 69 mL/min (>60); Est Glom Filt Rate - Afr Amer 84 mL/min (>60); Glucose 92 mg/dL (74-106); Potassium 4.3 mmol/L (3.5-5.1); Sodium Level 136 mmol/L (136-145)
== END ==
PROVIDERS: PCP Family Medicine; Visit Provider Internal Medicine Cardiovascular Disease
DX: I42.0 Dilated cardiomyopathy (principal); I11.0 Hypertensive heart disease with heart failure; I50.42 Chronic combined systolic (congestive) and diastolic (congestive) heart failure; I47.2 Ventricular tachycardia; I25.2 Old myocardial infarction; Z95.810 Presence of automatic (implantable) cardiac defibrillator
CPT/HCPCS: 36415; 80048; 93306

== ENCOUNTER → 2021-06-11 09:29 | Outpatient (CLI) | payer OTHER, SELFPAY ==
[2021-03-14 08:43] VITALS: BMI 29.7
--- NOTE | 2021-06-11 09:35 | ECHOD_ITS ---
Reason For Study: VENTRICULAR TACHYCARDIA Procedure This was a 2D Doppler, Color Flow transthoracic echocardiogram. Exam performed in department. Left Ventricle Normal LV size. Left ventricular systolic function is normal. The estimated ejection fraction is 55 %. Stage 1 diastolic dysfunction. No regional wall motion abnormalities noted. Right Ventricle Normal RV size. Normal systolic function. Atria Normal left atrium. Normal right atrium. Mitral Valve Normal mitral valve. Tricuspid Valve Normal tricuspid valve. Mild (1+) tricuspid valve insufficiency. Pulmonary artery systolic pressure is 30 mmHg. Pulmonic Valve Normal pulmonic valve. Great Vessels Normal aortic root. The pulmonary artery is normal size. Normal inferior vena cava. Pericardium/Pleural No pericardial effusion. MMode/2D Measurements & Calculations LVIDd: 5.9 cm IVSd: 0.92 cm Ao root diam: 3.4 cm LVIDs: 4.5 cm LVPWd: 0.99 cm RVDd: 3.8 cm FS: 23.7 % LAV(MOD-bp): 72.1 ml LA A4 area: 20.8 cm2 LA dimension(2D): 4.0 cm LAV(MOD-bp) Indexed: 35.0 ml/m2 LAV(MOD-sp2): 73.9 ml LAV(MOD-sp4): 68.9 ml RA A4 area: 18.0 cm2 Time Measurements MV dec time: 0.34 sec Doppler Measurements & Calculations MV E max christ: 65.3 cm/sec Lat Peak E' Christ: 10.0 cm/sec Med Peak E' Christ: 7.0 cm/sec MV A max christ: 86.9 cm/sec E/E' lat: 6.5 E/E' med: 9.4 MV E/A: 0.75 Ao V2 max: 148.6 cm/sec LV V1 max: 131.6 cm/sec PA V2 max: 127.2 cm/sec Ao max P.8 mmHg LV V1 max P.9 mmHg TR max christ: 256.9 cm/sec TR max P.4 mmHg ECHO/Echo Complete Interpretation Summary Normal LV size. Left ventricular systolic function is normal. The estimated ejection fraction is 55 %. Stage 1 diastolic dysfunction. Pulmonary artery systolic pressure is 30 mmHg. Compared to previous study, the left ventricular systolic function has improved .. Ordering Physician: Niels Beasley Referring Physician: Mat Dailey Performed By: Summer Ambrocio RDCS, RVT
== END ==
PROVIDERS: PCP Family Medicine; Referring Provider Internal Medicine Cardiovascular Disease; Visit Provider Internal Medicine Cardiovascular Disease
DX: I42.0 Dilated cardiomyopathy (principal); I11.0 Hypertensive heart disease with heart failure; I50.42 Chronic combined systolic (congestive) and diastolic (congestive) heart failure; I47.2 Ventricular tachycardia; I25.2 Old myocardial infarction
CPT/HCPCS: 93306